=== PATIENT | female | born 1930 | race Caucasian/White ===

== ENCOUNTER 2016-12-21 16:16 | Inpatient (IN) | payer MEDICARE, MEDICAID ==
[~2016-12-21] VITALS: Ht 152.4 cm; Wt 59.9 kg
[~2016-12-21 16:16] MED LIST: ACET-2708 PO; CELE50CA2 PO; D-ME473S8 PO; ESOM40CA PO; LEVO50TA8 PO; PIOG30TA27 PO; REPA1TAB5 PO
[2016-12-21] MEDS ORDERED: METHYLPREDNISOLONE SOD SUCC 125 MG/2 ML VIAL IV STA (18:15)
[2016-12-21] MEDS ORDERED: IPRATROPIUM/ALBUTEROL 0.5-3(2.5)MG/3ML NEB HHN ONE (18:15)
[2016-12-21] MEDS ORDERED: SODIUM CHLORIDE 0.9% 500 ML IV ONE (18:15)
[2016-12-21] MEDS ORDERED: LEVOFLOXACIN 750MG PREMIX 150 ML IV ONE (18:15)
[2016-12-21 18:53] LABS: BG BASE EXCESS 0.5 mmol/L (-2.0-2.0); BG CARBOXYHEMOGLOBIN 0.1 % (0.5-1.5); BG DEOXYHEMOGLOBIN 2.3 % (0.0-5.0); BG FRACTION INSPIRED OXYGEN 24; BG HCO3 ACT 24.8 mmol/L (22.0-26.0); BG METHEMOGLOBIN 0.2 % (0.0-1.5); BG OXYGEN SATURATION 97.7 % (92.0-98.5); BG OXYHEMOGLOBIN 97.4 % (94.0-97.0); BG PCO2 38.7 mmHg (35.0-45.0); BG PH 7.425 (7.350-7.450); BG PO2 104.4 mmHg (75.0-100.0); BG SAMPLE SITE RIGHT RADIAL; BG TOTAL HEMOGLOBIN 12.5 g/dL (12.0-18.0); BG VENT MODE NASAL CANNULA
[2016-12-21 19:12] LABS: BASOPHILS % 0.5 % (0.0-2.0); EOSINOPHILS % 5.6 % (0.0-5.0); HEMATOCRIT. 38.1 % (36.0-48.0); HEMOGLOBIN. 13.1 g/dL (12.0-16.0); LYMPHOCYTES % 27.7 % (20.0-50.0); MEAN CORPUSCULAR HEMOGLOBIN 32.3 pg (28.0-32.0); MEAN CORPUSCULAR VOLUME 94.2 fL (81.0-99.0); MONOCYTES % 13.4 % (2.0-8.0); NEUTROPHILS % 52.8 % (40.0-76.0); RED BLOOD CELL COUNT 4.04 mill/uL (4.2-5.4); RED CELL DISTRIBUTION WIDTH 13.4 % (11.6-14.6)
[2016-12-21 19:22] LABS: CARBON DIOXIDE 29 mEq/L (21-32); CHLORIDE 97 mEq/L (98-107); CREATINE KINASE 93 IU/L (26-192); TROPONIN I < 0.02 ng/mL (0.00-0.04)
[2016-12-21 19:23] LABS: PARTIAL THROMBOPLASTIN TIME 24.3 sec (23.4-31.0); PROTHROMBIN TIME 10.6 sec (9.4-11.6)
[2016-12-21 19:26] LABS: MEAN PLATELET VOLUME 12.1 fl (7.4-10.4); PLATELET 162 x1000/uL (130-400)
[2016-12-21 20:20] LABS: CLARITY URINE CLEAR (CLEAR); COLOR URINE YELLOW (YELLOW); GLUCOSE URINE NEGATIVE (NEGATIVE); KETONES URINE NEGATIVE (NEGATIVE); LEUKOCYTE ESTERASE URINE NEGATIVE (NEGATIVE); NITRITE URINE NEGATIVE (NEGATIVE); OCCULT BLOOD URINE NEGATIVE (NEGATIVE); PH URINE 7.5 (4.5-8.0); PROTEIN URINE NEGATIVE (NEGATIVE); SPECIFIC GRAVITY URINE 1.008 (1.005-1.030); UROBILINOGEN URINE 0.2 E.U./dL (0.2-1.0)
[2016-12-21] MEDS ORDERED: DOCUSATE SODIUM 100MG CAPSULE PO PRN (20:45)
[2016-12-21] MEDS ORDERED: DIPHENHYDRAMINE 50MG/ML VIAL IV PRN (20:45)
[2016-12-21] MEDS ORDERED: ONDANSETRON HCL 4MG/2ML VIAL IV PRN (20:45)
[2016-12-21] MEDS ORDERED: MORPHINE SULFATE 4 MG/ML CPJ (NOT FOR IM USE) IV PRN (20:45)
[2016-12-21] MEDS ORDERED: CLONIDINE 0.1MG TABLET PO PRN (20:45)
[2016-12-21] MEDS ORDERED: NA PHOS,M-B/NA PHOS,DI-BA ENEMA 118ML PR PRN (20:45)
[2016-12-21] MEDS ORDERED: ZOLPIDEM TARTRATE 5MG TABLET PO PRN (20:45)
[2016-12-21] MEDS ORDERED: TRAMADOL 50MG TABLET PO PRN (20:45)
[2016-12-21] MEDS ORDERED: GUAIFENESIN 200MG/10ML SUGAR FREE UDC PO PRN (20:45)
[2016-12-21] MEDS ORDERED: NITROGLYCERIN 0.4MG TABLET SL SL PRN (20:45)
[2016-12-21] MEDS ORDERED: IPRATROPIUM/ALBUTEROL 0.5-3(2.5)MG/3ML NEB INH PRN (20:45)
[2016-12-21] MEDS ORDERED: LEVOFLOXACIN 500MG PREMIX 100 ML IV SCH (20:45)
[2016-12-21] MEDS ORDERED: MAGNESIUM/ALUMINUM HYDROXIDE/SIMETHICONE 30ML UDC PO PRN (20:45)
[2016-12-21] MEDS ORDERED: DEXTROSE 50% WATER 50ML SYRINGE IV PRN (23:30)
[2016-12-22] VITALS: BP_SYST 167; BP_SYST 169; BP_DIAS 79; BP_DIAS 97
[2016-12-22 02:46] LABS: CREATINE KINASE 78 IU/L (26-192); CREATINE KINASE MB FRACTION 1.5 ng/mL (0.5-3.6); TROPONIN I < 0.02 ng/mL (0.00-0.04)
[2016-12-22 04:00] VITALS: BP 134/54
[2016-12-22] MEDS: IPRATROPIUM/ALBUTEROL 0.5-3(2.5)MG/3ML NEB HHN SCH ×5 (04:07→20:31)
[2016-12-22] MEDS ORDERED: LEVOTHYROXINE SODIUM 50MCG TABLET PO SCH (07:40)
[2016-12-22 08:00] VITALS: BP 134/58
[2016-12-22] MEDS: BLOOD SUGAR DIAGNOSTIC STRIP TEST SCH ×4 (08:02→21:12)
[2016-12-22] MEDS: INSULIN LISPRO 100 UNITS/ML SUBCUT SCH ×4 (08:17→21:12)
[2016-12-22] MEDS: SUCRALFATE 1 G/10 ML UDC PO SCH ×4 (08:22→21:11)
[2016-12-22] MEDS: ASPIRIN 325MG EC TABLET PO SCH (08:23)
[2016-12-22] MEDS: FAMOTIDINE 20MG/2ML VIAL IV SCH (08:23)
[2016-12-22] MEDS: GUAIFENESIN/DM 600MG/30MG ER TAB 12HR PO SCH ×2 (08:23→21:11)
[2016-12-22] MEDS: ZINC SULFATE 220 MG ( 50 ) CAPSULE PO SCH (08:23)
[2016-12-22] MEDS: ENOXAPARIN 40MG/0.4ML SYR SUBCUT SCH (08:23)
[2016-12-22] MEDS: ACETAMINOPHEN 325MG TABLET PO PRN (08:29)
[2016-12-22 10:16] LABS: BASOPHILS % 0.3 % (0.0-2.0); HEMATOCRIT. 38.3 % (36.0-48.0); LYMPHOCYTES % 10.3 % (20.0-50.0); MEAN CORPUSCULAR HEMOGLOBIN 32.2 pg (28.0-32.0); MEAN PLATELET VOLUME 12.1 fl (7.4-10.4); MONOCYTES % 0.8 % (2.0-8.0); NEUTROPHILS % 88.6 % (40.0-76.0); PLATELET 159 x1000/uL (130-400); RED BLOOD CELL COUNT 4.03 mill/uL (4.2-5.4); RED CELL DISTRIBUTION WIDTH 13.5 % (11.6-14.6)
[2016-12-22 10:36] LABS: CARBON DIOXIDE 23 mEq/L (21-32); CHLORIDE 98 mEq/L (98-107); CREATINE KINASE 76 IU/L (26-192); CREATINE KINASE MB FRACTION 1.5 ng/mL (0.5-3.6); TROPONIN I < 0.02 ng/mL (0.00-0.04)
[2016-12-22 12:00] VITALS: BP 137/64
[2016-12-22] MEDS: AZITHROMYCIN 500 MG in DEXT 5% WATER 250 ML IV SCH (12:11)
[2016-12-22] MEDS ORDERED: IPRATROPIUM/ALBUTEROL 0.5-3(2.5)MG/3ML NEB HHN PRN (13:30)
[2016-12-22 14:19] LABS: PLATELET ESTIMATE NORMAL
[2016-12-22] MEDS: METHYLPREDNISOLONE SOD SUCC 125 MG/2 ML VIAL IV SCH ×2 (14:34→21:11)
[2016-12-22 16:00] VITALS: BP 107/62
[2016-12-22] MEDS ORDERED: LEVOFLOXACIN 250MG PREMIX 50 ML IV SCH (20:00)
[2016-12-22] MEDS: BUDESONIDE 0.5MG/2ML NEB HHN SCH (20:31)
[2016-12-23] MEDS: IPRATROPIUM/ALBUTEROL 0.5-3(2.5)MG/3ML NEB HHN SCH ×6 (00:12→20:32)
[2016-12-23] MEDS: BLOOD SUGAR DIAGNOSTIC STRIP TEST SCH ×4 (05:53→21:09)
[2016-12-23] MEDS: METHYLPREDNISOLONE SOD SUCC 125 MG/2 ML VIAL IV SCH ×2 (06:02→14:14)
[2016-12-23] MEDS: INSULIN LISPRO 100 UNITS/ML SUBCUT SCH ×4 (06:03→21:10)
[2016-12-23 08:00] VITALS: BP 122/54
[2016-12-23] MEDS: BUDESONIDE 0.5MG/2ML NEB HHN SCH ×2 (08:21→20:32)
[2016-12-23] MEDS: ACETAMINOPHEN 325MG TABLET PO PRN (09:03)
[2016-12-23] MEDS: SUCRALFATE 1 G/10 ML UDC PO SCH ×4 (09:03→21:09)
[2016-12-23] MEDS: ZINC SULFATE 220 MG ( 50 ) CAPSULE PO SCH (09:03)
[2016-12-23] MEDS: ENOXAPARIN 40MG/0.4ML SYR SUBCUT SCH (09:03)
[2016-12-23] MEDS: ASPIRIN 325MG EC TABLET PO SCH (09:03)
[2016-12-23] MEDS: LEVOTHYROXINE SODIUM 50MCG TABLET PO SCH (09:03)
[2016-12-23] MEDS: FAMOTIDINE 20MG/2ML VIAL IV SCH (09:04)
[2016-12-23] MEDS: AZITHROMYCIN 500 MG in DEXT 5% WATER 250 ML IV SCH (09:04)
[2016-12-23] MEDS: GUAIFENESIN/DM 600MG/30MG ER TAB 12HR PO SCH ×2 (09:18→21:09)
[2016-12-23 12:00] VITALS: BP 124/54
[2016-12-23 16:00] VITALS: BP 133/60
[2016-12-23] MEDS: INSULIN DETEMIR UD 100 UNITS/ML SYR SUBCUT SCH (16:19)
[2016-12-23 20:05] VITALS: BP 109/47
[2016-12-23] MEDS: METHYLPREDNISOLONE SOD SUCC 40 MG/ML VIAL IV SCH (21:09)
[2016-12-24 00:05] VITALS: BP 115/53
[2016-12-24] MEDS: IPRATROPIUM/ALBUTEROL 0.5-3(2.5)MG/3ML NEB HHN SCH ×4 (00:27→12:14)
[2016-12-24 04:02] VITALS: BP 122/52
[2016-12-24 08:00] VITALS: BP 176/65
[2016-12-24] MEDS: ASPIRIN 325MG EC TABLET PO SCH (08:29)
[2016-12-24] MEDS: LEVOTHYROXINE SODIUM 50MCG TABLET PO SCH (08:29)
[2016-12-24] MEDS: ZINC SULFATE 220 MG ( 50 ) CAPSULE PO SCH (08:29)
[2016-12-24] MEDS: GUAIFENESIN/DM 600MG/30MG ER TAB 12HR PO SCH (08:29)
[2016-12-24] MEDS: METHYLPREDNISOLONE SOD SUCC 40 MG/ML VIAL IV SCH (08:30)
[2016-12-24] MEDS: ENOXAPARIN 40MG/0.4ML SYR SUBCUT SCH (08:30)
[2016-12-24] MEDS: FAMOTIDINE 20MG/2ML VIAL IV SCH (08:30)
[2016-12-24] MEDS: SUCRALFATE 1 G/10 ML UDC PO SCH ×3 (08:30→17:40)
[2016-12-24] MEDS: BLOOD SUGAR DIAGNOSTIC STRIP TEST SCH ×3 (08:30→18:25)
[2016-12-24] MEDS: INSULIN LISPRO 100 UNITS/ML SUBCUT SCH ×3 (08:37→18:27)
[2016-12-24] MEDS: AZITHROMYCIN 500 MG in DEXT 5% WATER 250 ML IV SCH (08:42)
[2016-12-24] MEDS: BUDESONIDE 0.5MG/2ML NEB HHN SCH (08:42)
[2016-12-24] MEDS: INSULIN DETEMIR UD 100 UNITS/ML SYR SUBCUT SCH (10:33)
[2016-12-24 11:15] VITALS: BP 140/87
[2016-12-24 12:00] VITALS: BP 130/70
[2016-12-25] MEDS ORDERED: AZITHROMYCIN 500 MG TABLET PO SCH (09:00)
== END 2016-12-24 19:40 | disposition home or self-care (01) | DRG 140 ==
LOC: EDBEDREQ 20:25 → SUPCPDRO 20:34 → ER 21:22 → 7WST 21:25 → ENRESERV 23:14
PROVIDERS: ADMIT Internal Medicine; ATTEND Internal Medicine
DX: J44.1 Chronic obstructive pulmonary disease with (acute) exacerbation (principal); J96.01 Acute respiratory failure with hypoxia; E87.0 Hyperosmolality and hypernatremia; J84.10 Pulmonary fibrosis, unspecified; E87.1 Hypo-osmolality and hyponatremia; M19.90 Unspecified osteoarthritis, unspecified site; E03.9 Hypothyroidism, unspecified; E11.65 Type 2 diabetes mellitus with hyperglycemia; T37.8X5A Adverse effect of other specified systemic anti-infectives and antiparasitics, initial encounter; Z79.4 Long term (current) use of insulin; Z87.442 Personal history of urinary calculi; Z90.81 Acquired absence of spleen; Z96.649 Presence of unspecified artificial hip joint; Z99.81 Dependence on supplemental oxygen; Z90.49 Acquired absence of other specified parts of digestive tract; Z88.8 Allergy status to other drugs, medicaments and biological substances
CPT/HCPCS: 36415; 36600; 71010; 80053; 80061; 81003; 82375; 82550; 82553; 82805; 82962; 83036; 83605; 83690; 83735; 83880; 84132; 84443; 84484; 85025; 85610; 85730; 87040; 93005; 93306; 94620; 94640; 96361; 96374; 96375; 99285; J0456; J1200; J1650; J1815; J1956; J2405; J2920; J2930; J3490; J7040; J7060; J7620; J7626

== ENCOUNTER → 2017-03-26 | Outpatient (CLI) | payer MEDICARE, MEDICAID | END | disposition home or self-care (01) | LOC: CT 09:42 | PROVIDERS: ATTEND Internal Medicine Critical Care Medicine | DX: J84.10 Pulmonary fibrosis, unspecified (principal); I70.0 Atherosclerosis of aorta; R59.0 Localized enlarged lymph nodes | CPT/HCPCS: 71250 ==

== ENCOUNTER 2018-03-29 20:21 | Inpatient (IN) | payer MEDICARE, MEDICAID ==
[~2018-03-29] VITALS: Ht 127 cm; Wt 59.0 kg
[~2018-03-29 20:21] MED LIST changes: +IPRA3AMP9 INH; +P20 PO; +PULM50 HHN
[2018-03-29] MEDS ORDERED: ALBUTEROL (0.083%) 2.5MG/3ML NEB HHN STA (23:27)
[2018-03-29] MEDS ORDERED: IPRATROPIUM BROMIDE (0.02%) 0.5MG/2.5ML NEB HHN STA (23:27)
[2018-03-29 23:51] LABS: CLARITY URINE CLEAR (CLEAR); COLOR URINE YELLOW (YELLOW); KETONES URINE NEGATIVE (NEGATIVE); LEUKOCYTE ESTERASE URINE TRACE (NEGATIVE); NITRITE URINE POSITIVE (NEGATIVE); OCCULT BLOOD URINE NEGATIVE (NEGATIVE); PH URINE 6.5 (4.5-8.0); PROTEIN URINE NEGATIVE (NEGATIVE); SPECIFIC GRAVITY URINE 1.007 (1.005-1.030); UROBILINOGEN URINE 0.2 E.U./dL (0.2-1.0)
[2018-03-30 00:28] LABS: BASOPHILS % 0.6 % (0.0-2.0); HEMATOCRIT. 37.7 % (36.0-48.0); HEMOGLOBIN. 12.9 g/dL (12.0-16.0); LYMPHOCYTES % 21.6 % (20.0-50.0); MEAN CORPUSCULAR HEMOGLOBIN 32.7 pg (28.0-32.0); MEAN CORPUSCULAR VOLUME 95.5 fL (81.0-99.0); MEAN PLATELET VOLUME 10.7 fl (7.4-10.4); MONOCYTES % 13.8 % (2.0-8.0); PLATELET 218 x1000/uL (130-400); RED BLOOD CELL COUNT 3.95 mill/uL (4.2-5.4); RED CELL DISTRIBUTION WIDTH 13.2 % (11.6-14.6)
[2018-03-30 00:44] LABS: CHLORIDE 95 mEq/L (98-107)
[2018-03-30] MEDS ORDERED: GENTAMICIN SULFATE 120 MG in SODIUM CHLORIDE 0.9% 100 ML IV SCH (01:45)
[2018-03-30] MEDS ORDERED: METHYLPREDNISOLONE SOD SUCC 125 MG/2 ML VIAL IV ONE (01:45)
[2018-03-30] MEDS ORDERED: AZITHROMYCIN 500 MG in DEXT 5% WATER 250 ML IV SCH (01:45)
[2018-03-30] MEDS: GENTAMICIN SULFATE 120 MG in SODIUM CHLORIDE 0.9% 100 ML IV NR ×2 (03:02→04:59)
[2018-03-30 04:00] VITALS: BP 121/67
[2018-03-30] MEDS ORDERED: IPRATROPIUM/ALBUTEROL 0.5-3(2.5)MG/3ML NEB INH PRN (06:00)
[2018-03-30] MEDS ORDERED: ONDANSETRON HCL 4MG/2ML INJ IV PRN (06:00)
[2018-03-30] MEDS ORDERED: NA PHOS,M-B/NA PHOS,DI-BA ENEMA 118ML PR PRN (06:00)
[2018-03-30] MEDS ORDERED: LORAZEPAM 2MG/ML CPJ IV PRN (06:00)
[2018-03-30] MEDS ORDERED: CLONIDINE 0.1MG TABLET PO PRN (06:00)
[2018-03-30] MEDS ORDERED: DEXTROSE 50% WATER 50ML SYRINGE IV PRN (06:00)
[2018-03-30] MEDS ORDERED: HYDROCODONE/ACETAMINOPHEN 5/325MG TABLET PO PRN (06:00)
[2018-03-30] MEDS ORDERED: MAGNESIUM/ALUMINUM HYDROXIDE/SIMETHICONE 30ML UDC PO PRN (06:00)
[2018-03-30] MEDS ORDERED: ACETAMINOPHEN 325MG TABLET PO PRN (06:00)
[2018-03-30] MEDS ORDERED: MORPHINE SULFATE 2 MG/ML CPJ (NOT FOR IM USE) IV PRN (06:00)
[2018-03-30 06:24] VITALS: BP 120/55
[2018-03-30] MEDS: SODIUM CHLORIDE 0.9% INJ 3ML FLUSH IVF SCH ×3 (06:46→20:41)
[2018-03-30] MEDS: BLOOD SUGAR DIAGNOSTIC STRIP TEST SCH ×5 (06:57→20:41)
[2018-03-30 08:00] VITALS: BP 132/65
[2018-03-30] MEDS: ENOXAPARIN 40MG/0.4ML SYR SUBCUT SCH (08:47)
[2018-03-30] MEDS: GUAIFENESIN 200MG/10ML SUGAR FREE UDC PO PRN (08:47)
[2018-03-30] MEDS: INSULIN LISPRO 100 UNITS/ML SUBCUT SCH ×5 (08:47→20:43)
[2018-03-30] MEDS ORDERED: INFLUENZA VIRUS VACCINE(AFLURIA) 0.5ML SYR IM ONE (10:00)
[2018-03-30] MEDS ORDERED: HYDROMORPHONE HCL/PF 2MG/ML CPJ IV PRN (10:00)
[2018-03-30 10:01] LABS: CREATINE KINASE 48 IU/L (26-192)
[2018-03-30 10:02] LABS: CREATINE KINASE MB FRACTION 1.4 ng/mL (0.5-3.6)
[2018-03-30 12:00] VITALS: BP 124/53
[2018-03-30 16:00] VITALS: BP 132/58
[2018-03-30] MEDS ORDERED: IPRATROPIUM/ALBUTEROL 0.5-3(2.5)MG/3ML NEB HHN PRN (18:15)
[2018-03-30 20:00] VITALS: BP 127/60
[2018-03-30] MEDS: BUDESONIDE 0.5MG/2ML NEB HHN SCH (20:38)
[2018-03-30] MEDS: IPRATROPIUM/ALBUTEROL 0.5-3(2.5)MG/3ML NEB HHN SCH (20:38)
[2018-03-31 00:05] VITALS: BP 129/58
[2018-03-31 01:17] LABS: CREATINE KINASE 55 IU/L (26-192)
[2018-03-31 01:18] LABS: CREATINE KINASE MB FRACTION 1.3 ng/mL (0.5-3.6)
[2018-03-31 04:00] VITALS: BP 98/80
[2018-03-31] MEDS: AZITHROMYCIN 500 MG in DEXT 5% WATER 250 ML IV SCH (05:49)
[2018-03-31] MEDS: SODIUM CHLORIDE 0.9% INJ 3ML FLUSH IVF SCH ×3 (05:50→22:00)
[2018-03-31 06:34] LABS: BASOPHILS % 0.3 % (0.0-2.0); EOSINOPHILS % 0.4 % (0.0-5.0); HEMATOCRIT. 33.9 % (36.0-48.0); HEMOGLOBIN. 11.7 g/dL (12.0-16.0); LYMPHOCYTES % 15.8 % (20.0-50.0); MEAN CORPUSCULAR HEMOGLOBIN 32.7 pg (28.0-32.0); MEAN CORPUSCULAR VOLUME 95.1 fL (81.0-99.0); MEAN PLATELET VOLUME 10.6 fl (7.4-10.4); MONOCYTES % 14.6 % (2.0-8.0); NEUTROPHILS % 68.9 % (40.0-76.0); PLATELET 205 x1000/uL (130-400); RED BLOOD CELL COUNT 3.56 mill/uL (4.2-5.4); RED CELL DISTRIBUTION WIDTH 13.2 % (11.6-14.6)
[2018-03-31 06:54] LABS: CHLORIDE 94 mEq/L (98-107)
[2018-03-31 07:26] LABS: T4 FREE 1.14 ng/dL (0.76-1.46)
[2018-03-31 08:00] VITALS: BP 109/37
[2018-03-31] MEDS: BLOOD SUGAR DIAGNOSTIC STRIP TEST SCH ×4 (08:37→20:51)
[2018-03-31] MEDS: ENOXAPARIN 40MG/0.4ML SYR SUBCUT SCH (08:48)
[2018-03-31] MEDS: INSULIN LISPRO 100 UNITS/ML SUBCUT SCH ×4 (08:52→21:32)
[2018-03-31] MEDS: IPRATROPIUM/ALBUTEROL 0.5-3(2.5)MG/3ML NEB HHN SCH ×3 (09:33→21:08)
[2018-03-31] MEDS: BUDESONIDE 0.5MG/2ML NEB HHN SCH ×2 (09:33→21:08)
[2018-03-31] MEDS ORDERED: FUROSEMIDE 40MG/4ML VIAL IVP SCH (11:00)
[2018-03-31 12:00] VITALS: BP 100/31
[2018-03-31] MEDS: DOCUSATE SODIUM 100MG CAPSULE PO PRN (13:22)
[2018-03-31] MEDS: NITROFURANTOIN 100MG M/M CAPSULE PO SCH ×2 (13:23→20:50)
[2018-03-31 16:00] VITALS: BP 122/54
[2018-03-31 20:00] VITALS: BP 128/52
[2018-04-01] VITALS: BP 126/64
[2018-04-01] MEDS: IPRATROPIUM/ALBUTEROL 0.5-3(2.5)MG/3ML NEB HHN SCH ×4 (01:01→20:49)
[2018-04-01 04:00] VITALS: BP 109/41
[2018-04-01] MEDS: AZITHROMYCIN 500 MG in DEXT 5% WATER 250 ML IV SCH (05:25)
[2018-04-01] MEDS: SODIUM CHLORIDE 0.9% INJ 3ML FLUSH IVF SCH ×3 (05:26→22:45)
[2018-04-01] MEDS: BLOOD SUGAR DIAGNOSTIC STRIP TEST SCH ×4 (05:59→21:43)
[2018-04-01 06:53] LABS: BASOPHILS % 0.6 % (0.0-2.0); EOSINOPHILS % 7.4 % (0.0-5.0); HEMOGLOBIN. 12.3 g/dL (12.0-16.0); LYMPHOCYTES % 16.7 % (20.0-50.0); MEAN CORPUSCULAR HEMOGLOBIN 33.4 pg (28.0-32.0); MEAN CORPUSCULAR VOLUME 95.3 fL (81.0-99.0); MEAN PLATELET VOLUME 10.5 fl (7.4-10.4); MONOCYTES % 10.2 % (2.0-8.0); NEUTROPHILS % 65.1 % (40.0-76.0); PLATELET 197 x1000/uL (130-400); RED BLOOD CELL COUNT 3.67 mill/uL (4.2-5.4); RED CELL DISTRIBUTION WIDTH 13.4 % (11.6-14.6)
[2018-04-01 07:05] LABS: CHLORIDE 92 mEq/L (98-107)
[2018-04-01 07:25] LABS: LDL CHOLESTEROL 108 mg/dL (5-100)
[2018-04-01 07:26] LABS: CREATINE KINASE 33 IU/L (26-192)
[2018-04-01 07:27] LABS: HDL CHOLESTEROL 61 mg/dL (40-59)
[2018-04-01] MEDS: BUDESONIDE 0.5MG/2ML NEB HHN SCH ×2 (07:30→20:46)
[2018-04-01 07:33] LABS: CREATINE KINASE MB FRACTION < 1.0 ng/mL (0.5-3.6)
[2018-04-01 08:00] VITALS: BP_SYST 110; BP_SYST 138; BP_DIAS 39; BP_DIAS 63
[2018-04-01] MEDS: INSULIN LISPRO 100 UNITS/ML SUBCUT SCH ×5 (08:10→21:51)
[2018-04-01] MEDS: BENZONATATE 100MG CAPSULE PO PRN ×2 (08:52→17:21)
[2018-04-01] MEDS: NITROFURANTOIN 100MG M/M CAPSULE PO SCH ×2 (08:52→21:43)
[2018-04-01] MEDS: GUAIFENESIN 200MG/10ML SUGAR FREE UDC PO PRN ×2 (08:53→17:21)
[2018-04-01] MEDS: DOCUSATE SODIUM 100MG CAPSULE PO PRN ×2 (08:53→17:21)
[2018-04-01] MEDS: ENOXAPARIN 40MG/0.4ML SYR SUBCUT SCH (08:53)
[2018-04-01 12:00] VITALS: BP 122/56
[2018-04-01 16:00] VITALS: BP 97/53
[2018-04-01 20:00] VITALS: BP 101/45
[2018-04-02] VITALS: BP 106/47
[2018-04-02] MEDS: IPRATROPIUM/ALBUTEROL 0.5-3(2.5)MG/3ML NEB HHN SCH ×3 (02:05→15:14)
[2018-04-02 04:00] VITALS: BP 104/47
[2018-04-02] MEDS: AZITHROMYCIN 500 MG in DEXT 5% WATER 250 ML IV SCH (06:09)
[2018-04-02] MEDS: BLOOD SUGAR DIAGNOSTIC STRIP TEST SCH ×2 (06:09→12:06)
[2018-04-02] MEDS: SODIUM CHLORIDE 0.9% INJ 3ML FLUSH IVF SCH (06:10)
[2018-04-02] MEDS: INSULIN LISPRO 100 UNITS/ML SUBCUT SCH ×2 (06:25→12:09)
[2018-04-02 08:00] VITALS: BP 132/58
[2018-04-02 08:58] LABS: BASOPHILS % 0.3 % (0.0-2.0); EOSINOPHILS % 8.1 % (0.0-5.0); HEMATOCRIT. 36.9 % (36.0-48.0); HEMOGLOBIN. 12.7 g/dL (12.0-16.0); LYMPHOCYTES % 12.2 % (20.0-50.0); MEAN CORPUSCULAR VOLUME 95.6 fL (81.0-99.0); MEAN PLATELET VOLUME 10.5 fl (7.4-10.4); MONOCYTES % 14.6 % (2.0-8.0); NEUTROPHILS % 64.8 % (40.0-76.0); PLATELET 194 x1000/uL (130-400); RED BLOOD CELL COUNT 3.86 mill/uL (4.2-5.4); RED CELL DISTRIBUTION WIDTH 13.3 % (11.6-14.6)
[2018-04-02] MEDS: ENOXAPARIN 40MG/0.4ML SYR SUBCUT SCH (09:01)
[2018-04-02] MEDS: NITROFURANTOIN 100MG M/M CAPSULE PO SCH (09:01)
[2018-04-02] MEDS: BUDESONIDE 0.5MG/2ML NEB HHN SCH (09:11)
[2018-04-02 12:00] VITALS: BP 146/65
[2018-04-02 12:37] LABS: CHLORIDE 97 mEq/L (98-107)
[2018-04-02 14:23] VITALS: BP 146/65
[2018-04-03] MEDS ORDERED: AZITHROMYCIN 500 MG TABLET PO SCH (06:00)
== END 2018-04-02 16:45 | disposition home or self-care (01) | DRG 720 ==
LOC: ER 20:21 → 5WST 03-30 01:50 → EDBEDREQ 03-30 02:17 → ENRESERV 03-30 03:06 → 7WST 03-30 17:00 → 5WST 04-02 05:56
PROVIDERS: ADMIT Internal Medicine; ATTEND Internal Medicine
DX: A41.9 Sepsis, unspecified organism (principal); J96.01 Acute respiratory failure with hypoxia; J18.9 Pneumonia, unspecified organism; E46 Unspecified protein-calorie malnutrition; J84.112 Idiopathic pulmonary fibrosis; J44.0 Chronic obstructive pulmonary disease with (acute) lower respiratory infection; E11.9 Type 2 diabetes mellitus without complications; N39.0 Urinary tract infection, site not specified; M25.511 Pain in right shoulder; I11.9 Hypertensive heart disease without heart failure; E87.1 Hypo-osmolality and hyponatremia; E78.5 Hyperlipidemia, unspecified; E03.9 Hypothyroidism, unspecified; E78.00 Pure hypercholesterolemia, unspecified; K21.9 Gastro-esophageal reflux disease without esophagitis; Z79.84 Long term (current) use of oral hypoglycemic drugs; Z79.890 Hormone replacement therapy; Z68.36 Body mass index [BMI] 36.0-36.9, adult; Z88.1 Allergy status to other antibiotic agents; Z79.899 Other long term (current) drug therapy
CPT/HCPCS: 36415; 71045; 73030; 80048; 80061; 82550; 82553; 82962; 83605; 83735; 83880; 84439; 84443; 84484; 85379; 87077; 87186; 90686; 93005; 93306; 93970; 94640; 97162; 97535; 99285; J0456; J1580; J1650; J1815; J1940; J2930; J7050; J7060; J7611; J7620; J7626

== ENCOUNTER 2018-07-15 13:03 | Inpatient (IN) | payer MEDICARE, MEDICAID ==
[~2018-07-15] VITALS: Ht 152.4 cm; Wt 54.9 kg
[2018-07-15] VITALS (12 sets, daily range): BP systolic 119–179; BP diastolic 52–91
[2018-07-15 13:35] LABS: BG BASE EXCESS 2.6 mmol/L (-2.0-2.0); BG BILEVEL POS AIRWAY PRESSURE 15/5; BG CARBOXYHEMOGLOBIN 0.3 % (0.5-1.5); BG DEOXYHEMOGLOBIN 0.7 % (0.0-5.0); BG FRACTION INSPIRED OXYGEN 50; BG HCO3 ACT 26.8 mmol/L (22.0-26.0); BG METHEMOGLOBIN 0.3 % (0.0-1.5); BG OXYGEN SATURATION 99.3 % (92.0-98.5); BG OXYHEMOGLOBIN 98.7 % (94.0-97.0); BG PCO2 40.1 mmHg (35.0-45.0); BG PH 7.443 (7.350-7.450); BG PO2 209.8 mmHg (75.0-100.0); BG SAMPLE SITE RIGHT RADIAL; BG TOTAL HEMOGLOBIN 13.1 g/dL (12.0-18.0); BG VENT MODE MASK - BIPAP; BG VENT RATE 16 set
[2018-07-15 13:48] LABS: HEMATOCRIT. 36.7 % (36.0-48.0); HEMOGLOBIN. 12.6 g/dL (12.0-16.0); MEAN CORPUSCULAR HEMOGLOBIN 32.2 pg (28.0-32.0); MEAN CORPUSCULAR VOLUME 93.5 fL (81.0-99.0); MEAN PLATELET VOLUME 10.7 fl (7.4-10.4); PLATELET 176 x1000/uL (130-400); RED BLOOD CELL COUNT 3.92 mill/uL (4.2-5.4); RED CELL DISTRIBUTION WIDTH 13.2 % (11.6-14.6)
[2018-07-15 13:52] LABS: CHLORIDE 87 mEq/L (98-107); INR 1.1; PROTHROMBIN TIME 11.3 sec (9.6-11.0)
[2018-07-15] MEDS ORDERED: VANCOMYCIN 1 G PREMIX 200 ML IV SCH (14:15)
[2018-07-15] MEDS ORDERED: GENTAMICIN 100MG PREMIX 100 ML IV ONE (14:15)
[2018-07-15 14:17] LABS: PLATELET ESTIMATE NORMAL
[2018-07-15] MEDS ORDERED: GENTAMICIN 100MG PREMIX 50 ML IV ONE (14:30)
[2018-07-15] MEDS ORDERED: DOCUSATE SODIUM 100MG CAPSULE PO PRN (15:00)
[2018-07-15] MEDS ORDERED: IPRATROPIUM/ALBUTEROL 0.5-3(2.5)MG/3ML NEB INH PRN (15:00)
[2018-07-15] MEDS ORDERED: ONDANSETRON HCL 4MG/2ML INJ IV PRN (15:00)
[2018-07-15] MEDS ORDERED: MAGNESIUM/ALUMINUM HYDROXIDE/SIMETHICONE 30ML UDC PO PRN (15:00)
[2018-07-15] MEDS ORDERED: LORAZEPAM 0.5MG TABLET PO PRN (15:00)
[2018-07-15] MEDS ORDERED: ZOLPIDEM TARTRATE 5MG TABLET PO PRN (15:00)
[2018-07-15] MEDS ORDERED: NITROGLYCERIN 0.4MG TABLET SL SL PRN (15:00)
[2018-07-15] MEDS ORDERED: CLONIDINE 0.1MG TABLET PO PRN (15:00)
[2018-07-15] MEDS ORDERED: GUAIFENESIN/DM 600MG/30MG ER TAB 12HR PO SCH (15:00)
[2018-07-15 16:13] LABS: T4 FREE 1.55 ng/dL (0.76-1.46)
[2018-07-15] MEDS ORDERED: METRONIDAZOLE 500 MG PREMIX 100 ML IV SCH (16:45)
[2018-07-15] MEDS ORDERED: AZTREONAM 1 G in DEXTROSE 5% WATER 50 ML IV SCH (16:45)
[2018-07-15] MEDS ORDERED: PROPOFOL 10MG/ML 100ML 100 ML IV PRN (16:45)
[2018-07-15] MEDS ORDERED: PROPOFOL 10MG/ML 100ML 100 ML IV ONE (17:15)
[2018-07-15] MEDS ORDERED: SUCCINYLCHOLINE CHLORIDE 200MG/10ML IV ONE (17:15)
[2018-07-15] MEDS ORDERED: ETOMIDATE 2MG/ML 10ML VIAL IV ONE (17:15)
[2018-07-15] MEDS ORDERED: ALBUTEROL (0.083%) 2.5MG/3ML NEB ONE (17:18)
[2018-07-15] MEDS ORDERED: MORPHINE SULFATE 4 MG/ML CPJ (NOT FOR IM USE) IV PRN (18:20)
[2018-07-15] MEDS ORDERED: TRAMADOL 50MG TABLET PO PRN (18:21)
[2018-07-15] MEDS ORDERED: NOREPINEPHRINE 16 MG in DEXT 5% WATER 234 ML IV PRN ×4 (18:30)
[2018-07-15] MEDS ORDERED: SODIUM CHLORIDE 0.9% 1,000 ML IV SCH (18:30)
[2018-07-15] MEDS ORDERED: DEXTROSE 50% WATER 50ML SYRINGE IV PRN (20:45)
[2018-07-15] MEDS: ENOXAPARIN 40MG/0.4ML SYR SUBCUT SCH (20:59)
[2018-07-15] MEDS ORDERED: NA PHOS,M-B/NA PHOS,DI-BA ENEMA 118ML PR PRN (21:00)
[2018-07-15] MEDS: BLOOD SUGAR DIAGNOSTIC STRIP TEST SCH (21:00)
[2018-07-15] MEDS: INSULIN LISPRO 100 UNITS/ML SUBCUT SCH (21:00)
[2018-07-15] MEDS: GUAIFENESIN/DM 600MG/30MG ER TAB 12HR PO SCH (21:00)
[2018-07-15] MEDS: ACETAMINOPHEN 325MG TABLET PO PRN (21:01)
[2018-07-15] MEDS ORDERED: GENTAMICIN 120MG PREMIX 100 ML IV SCH (21:30)
[2018-07-15] MEDS: METHYLPREDNISOLONE SOD SUCC 125 MG/2 ML VIAL IV SCH (21:50)
[2018-07-15] MEDS ORDERED: DEXT 5%/0.9% NACL KCL 20MEQ/L 1,000 ML IV SCH (22:00)
[2018-07-15 23:08] LABS: CREATINE KINASE 47 IU/L (26-192)
[2018-07-15 23:09] LABS: CREATINE KINASE MB FRACTION 1.1 ng/mL (0.5-3.6)
[2018-07-15 23:20] LABS: CLARITY URINE CLEAR (CLEAR); COLOR URINE YELLOW (YELLOW); KETONES URINE NEGATIVE (NEGATIVE); LEUKOCYTE ESTERASE URINE NEGATIVE (NEGATIVE); NITRITE URINE NEGATIVE (NEGATIVE); OCCULT BLOOD URINE NEGATIVE (NEGATIVE); PROTEIN URINE NEGATIVE (NEGATIVE); SPECIFIC GRAVITY URINE 1.004 (1.005-1.030)
[2018-07-16] VITALS (48 sets, daily range): BP systolic 98–147; BP diastolic 31–87
[2018-07-16] MEDS ORDERED: VANCOMYCIN 750 MG PREMIX 150 ML IV SCH (05:00)
[2018-07-16 05:50] LABS: CREATINE KINASE 49 IU/L (26-192)
[2018-07-16 05:51] LABS: CREATINE KINASE MB FRACTION 1.5 ng/mL (0.5-3.6)
[2018-07-16] MEDS: METHYLPREDNISOLONE SOD SUCC 125 MG/2 ML VIAL IV SCH ×3 (06:39→21:00)
[2018-07-16] MEDS ORDERED: LEVOTHYROXINE SODIUM 112MCG TABLET PO SCH (07:50)
[2018-07-16 07:57] LABS: BG BASE EXCESS 0.5 mmol/L (-2.0-2.0); BG CARBOXYHEMOGLOBIN 0.8 % (0.5-1.5); BG DEOXYHEMOGLOBIN 2.2 % (0.0-5.0); BG FRACTION INSPIRED OXYGEN 31; BG HCO3 ACT 27.2 mmol/L (22.0-26.0); BG METHEMOGLOBIN 0.3 % (0.0-1.5); BG OXYGEN SATURATION 97.8 % (92.0-98.5); BG OXYHEMOGLOBIN 96.7 % (94.0-97.0); BG PCO2 52.1 mmHg (35.0-45.0); BG PH 7.336 (7.350-7.450); BG PO2 108.1 mmHg (75.0-100.0); BG SAMPLE SITE RIGHT RADIAL; BG TOTAL HEMOGLOBIN 13.8 g/dL (12.0-18.0); BG VENT MODE MASK - VENTI
[2018-07-16] MEDS: BLOOD SUGAR DIAGNOSTIC STRIP TEST SCH ×4 (08:09→21:22)
[2018-07-16] MEDS: GUAIFENESIN/DM 600MG/30MG ER TAB 12HR PO SCH ×2 (08:18→21:00)
[2018-07-16] MEDS: INSULIN LISPRO 100 UNITS/ML SUBCUT SCH ×4 (08:19→21:25)
[2018-07-16 08:29] LABS: HEMATOCRIT. 38.9 % (36.0-48.0); HEMOGLOBIN. 13.3 g/dL (12.0-16.0); MEAN CORPUSCULAR HEMOGLOBIN 32.4 pg (28.0-32.0); MEAN CORPUSCULAR VOLUME 94.8 fL (81.0-99.0); MEAN PLATELET VOLUME 11.1 fl (7.4-10.4); PLATELET 192 x1000/uL (130-400); RED CELL DISTRIBUTION WIDTH 13.3 % (11.6-14.6)
[2018-07-16 08:30] LABS: CHLORIDE 93 mEq/L (98-107)
[2018-07-16 09:37] LABS: PLATELET ESTIMATE NORMAL
[2018-07-16] MEDS: GUAIFENESIN 200MG/10ML SUGAR FREE UDC PO PRN ×2 (10:22→18:02)
[2018-07-16 14:13] LABS: BG CARBOXYHEMOGLOBIN 0.5 % (0.5-1.5); BG DEOXYHEMOGLOBIN 1.1 % (0.0-5.0); BG FRACTION INSPIRED OXYGEN 32; BG HCO3 ACT 25.6 mmol/L (22.0-26.0); BG METHEMOGLOBIN 0.5 % (0.0-1.5); BG OXYGEN SATURATION 98.9 % (92.0-98.5); BG OXYHEMOGLOBIN 97.9 % (94.0-97.0); BG PCO2 50.1 mmHg (35.0-45.0); BG PH 7.326 (7.350-7.450); BG PO2 160.6 mmHg (75.0-100.0); BG SAMPLE SITE LEFT BRACHIAL; BG TOTAL HEMOGLOBIN 13.5 g/dL (12.0-18.0); BG VENT MODE NASAL CANNULA
[2018-07-16] MEDS: ENOXAPARIN 40MG/0.4ML SYR SUBCUT SCH (20:59)
[2018-07-16] MEDS: GENTAMICIN 100MG PREMIX 50 ML IV SCH (21:00)
[2018-07-17] VITALS (25 sets, daily range): BP systolic 101–155; BP diastolic 39–89
[2018-07-17] MEDS: VANCOMYCIN 750 MG PREMIX 150 ML IV SCH ×2 (00:28→20:52)
[2018-07-17] MEDS: METHYLPREDNISOLONE SOD SUCC 125 MG/2 ML VIAL IV SCH ×3 (05:09→22:09)
[2018-07-17 07:31] LABS: BG CARBOXYHEMOGLOBIN 0.1 % (0.5-1.5); BG DEOXYHEMOGLOBIN 10.3 % (0.0-5.0); BG FRACTION INSPIRED OXYGEN 21; BG HCO3 ACT 20.7 mmol/L (22.0-26.0); BG METHEMOGLOBIN 0.1 % (0.0-1.5); BG OXYGEN SATURATION 89.7 % (92.0-98.5); BG OXYHEMOGLOBIN 89.5 % (94.0-97.0); BG PCO2 36.4 mmHg (35.0-45.0); BG PH 7.372 (7.350-7.450); BG PO2 59.4 mmHg (75.0-100.0); BG SAMPLE SITE LEFT RADIAL; BG TOTAL HEMOGLOBIN 13.1 g/dL (12.0-18.0); BG VENT MODE ROOM AIR
[2018-07-17] MEDS: BLOOD SUGAR DIAGNOSTIC STRIP TEST SCH ×4 (08:08→20:49)
[2018-07-17] MEDS: INSULIN LISPRO 100 UNITS/ML SUBCUT SCH ×4 (08:26→20:51)
[2018-07-17] MEDS: LEVOTHYROXINE SODIUM 75MCG TABLET PO SCH (08:26)
[2018-07-17] MEDS: GUAIFENESIN/DM 600MG/30MG ER TAB 12HR PO SCH ×2 (08:26→20:48)
[2018-07-17] MEDS: GUAIFENESIN 200MG/10ML SUGAR FREE UDC PO PRN ×2 (08:46→17:38)
[2018-07-17] MEDS: ACETAMINOPHEN 325MG TABLET PO PRN (17:24)
[2018-07-17] MEDS: GENTAMICIN 100MG PREMIX 50 ML IV SCH (20:48)
[2018-07-17] MEDS: ENOXAPARIN 40MG/0.4ML SYR SUBCUT SCH (20:48)
[2018-07-18] VITALS (12 sets, daily range): BP systolic 116–146; BP diastolic 56–85
[2018-07-18] MEDS: METHYLPREDNISOLONE SOD SUCC 125 MG/2 ML VIAL IV SCH (05:58)
[2018-07-18] MEDS: LEVOTHYROXINE SODIUM 75MCG TABLET PO SCH (06:05)
[2018-07-18] MEDS: BLOOD SUGAR DIAGNOSTIC STRIP TEST SCH ×4 (06:15→21:01)
[2018-07-18] MEDS: INSULIN LISPRO 100 UNITS/ML SUBCUT SCH ×4 (06:16→21:20)
[2018-07-18] MEDS: GUAIFENESIN/DM 600MG/30MG ER TAB 12HR PO SCH ×2 (07:56→21:04)
[2018-07-18 08:24] LABS: CHLORIDE 90 mEq/L (98-107)
[2018-07-18] MEDS: VANCOMYCIN 750 MG PREMIX 150 ML IV SCH (15:05)
[2018-07-18] MEDS: PREDNISONE 20MG TABLET PO SCH (16:53)
[2018-07-18] MEDS: GENTAMICIN 100MG PREMIX 50 ML IV SCH (21:01)
[2018-07-18] MEDS: ENOXAPARIN 40MG/0.4ML SYR SUBCUT SCH (21:01)
[2018-07-18] MEDS: IPRATROPIUM/ALBUTEROL 0.5-3(2.5)MG/3ML NEB HHN SCH (21:14)
[2018-07-19] VITALS (13 sets, daily range): BP systolic 116–146; BP diastolic 48–81
[2018-07-19] MEDS: IPRATROPIUM/ALBUTEROL 0.5-3(2.5)MG/3ML NEB HHN SCH ×4 (01:50→21:13)
[2018-07-19] MEDS: VANCOMYCIN 750 MG PREMIX 150 ML IV SCH ×2 (04:58→20:21)
[2018-07-19] MEDS: LEVOTHYROXINE SODIUM 75MCG TABLET PO SCH (06:22)
[2018-07-19] MEDS: PREDNISONE 20MG TABLET PO SCH ×2 (06:22→16:50)
[2018-07-19] MEDS: BLOOD SUGAR DIAGNOSTIC STRIP TEST SCH ×4 (06:37→21:28)
[2018-07-19] MEDS: INSULIN LISPRO 100 UNITS/ML SUBCUT SCH ×4 (07:23→21:28)
[2018-07-19] MEDS: GUAIFENESIN/DM 600MG/30MG ER TAB 12HR PO SCH ×2 (07:50→21:27)
[2018-07-19 12:08] LABS: BG BASE EXCESS 5.8 mmol/L (-2.0-2.0); BG CARBOXYHEMOGLOBIN 0.1 % (0.5-1.5); BG DEOXYHEMOGLOBIN 14.9 % (0.0-5.0); BG HCO3 ACT 31.4 mmol/L (22.0-26.0); BG METHEMOGLOBIN 0.4 % (0.0-1.5); BG OXYHEMOGLOBIN 84.6 % (94.0-97.0); BG PCO2 49.6 mmHg (35.0-45.0); BG PH 7.419 (7.350-7.450); BG PO2 47.2 mmHg (75.0-100.0); BG SAMPLE SITE RIGHT RADIAL; BG TOTAL HEMOGLOBIN 13.1 g/dL (12.0-18.0); BG VENT MODE ROOM AIR
[2018-07-19] MEDS: ENOXAPARIN 40MG/0.4ML SYR SUBCUT SCH (20:22)
[2018-07-20] VITALS (10 sets, daily range): BP systolic 113–138; BP diastolic 49–75
[2018-07-20] MEDS: IPRATROPIUM/ALBUTEROL 0.5-3(2.5)MG/3ML NEB HHN SCH ×3 (03:17→14:01)
[2018-07-20] MEDS ORDERED: GENTAMICIN 100MG PREMIX 50 ML IV SCH (06:00)
[2018-07-20 06:28] LABS: CHLORIDE 89 mEq/L (98-107)
[2018-07-20 07:02] LABS: GENTAMICIN RANDOM < 0.2 ug/mL
[2018-07-20] MEDS: BLOOD SUGAR DIAGNOSTIC STRIP TEST SCH ×3 (07:24→17:17)
[2018-07-20] MEDS: LEVOTHYROXINE SODIUM 75MCG TABLET PO SCH (07:30)
[2018-07-20] MEDS: PREDNISONE 20MG TABLET PO SCH ×2 (07:30→17:23)
[2018-07-20] MEDS: INSULIN LISPRO 100 UNITS/ML SUBCUT SCH ×3 (07:32→17:23)
[2018-07-20] MEDS: VANCOMYCIN 750 MG PREMIX 150 ML IV SCH (07:35)
[2018-07-20] MEDS: GUAIFENESIN/DM 600MG/30MG ER TAB 12HR PO SCH (08:18)
== END 2018-07-20 18:30 | disposition home or self-care (01) | DRG 133 ==
LOC: ER 13:03 → CVICU 14:39 → EDBEDREQ 14:41 → ENRESERV 16:09 → 3WST 07-17 22:45
PROVIDERS: ADMIT Internal Medicine; ATTEND Internal Medicine
PROC: 5A09457 Assistance with Respiratory Ventilation, 24-96 Consecutive Hours, Continuous Positive Airway Pressure (ICD-10-PCS; principal; 2018-07-15)
DX: J96.20 Acute and chronic respiratory failure, unspecified whether with hypoxia or hypercapnia (principal); G92 Toxic encephalopathy; J18.9 Pneumonia, unspecified organism; E11.65 Type 2 diabetes mellitus with hyperglycemia; J84.112 Idiopathic pulmonary fibrosis; Z99.81 Dependence on supplemental oxygen; J44.0 Chronic obstructive pulmonary disease with (acute) lower respiratory infection; I11.9 Hypertensive heart disease without heart failure; E11.36 Type 2 diabetes mellitus with diabetic cataract; E78.00 Pure hypercholesterolemia, unspecified; E44.1 Mild protein-calorie malnutrition; E87.1 Hypo-osmolality and hyponatremia; E03.9 Hypothyroidism, unspecified; K21.9 Gastro-esophageal reflux disease without esophagitis; Z79.4 Long term (current) use of insulin; Z82.5 Family history of asthma and other chronic lower respiratory diseases; Z90.81 Acquired absence of spleen; Z88.1 Allergy status to other antibiotic agents; Z90.49 Acquired absence of other specified parts of digestive tract; Z68.23 Body mass index [BMI] 23.0-23.9, adult; Z88.6 Allergy status to analgesic agent
CPT/HCPCS: 36415; 36600; 71045; 71250; 80048; 80170; 80202; 82375; 82550; 82553; 82805; 82962; 83036; 83605; 83880; 84439; 84443; 84484; 87070; 93005; 93306; 93970; 94640; 94660; 96374; 96375; 97116; 97162; 97166; 97530; 97535; 99285; J1580; J1650; J1815; J2930; J3370; J7040; J7512; J7611; J7620

== ENCOUNTER 2018-09-19 18:13 | Inpatient (IN) | payer MEDICARE, MEDICAID ==
[~2018-09-19] VITALS: Ht 162.6 cm; Wt 49.0 kg
[2018-09-19] MEDS ORDERED: ONDANSETRON HCL 4MG/2ML INJ IV STA ×2 (18:33→19:23)
[2018-09-19] MEDS ORDERED: ALBUTEROL (0.083%) 2.5MG/3ML NEB HHN STA (18:33)
[2018-09-19] MEDS ORDERED: IPRATROPIUM BROMIDE (0.02%) 0.5MG/2.5ML NEB HHN STA (18:33)
[2018-09-19 18:56] LABS: BASOPHILS % 0.8 % (0.0-2.0); EOSINOPHILS % 6.3 % (0.0-5.0); HEMOGLOBIN. 13.2 g/dL (12.0-16.0); LYMPHOCYTES % 16.3 % (20.0-50.0); MEAN CORPUSCULAR HEMOGLOBIN 33.1 pg (28.0-32.0); MEAN CORPUSCULAR VOLUME 95.3 fL (81.0-99.0); MEAN PLATELET VOLUME 9.9 fl (7.4-10.4); MONOCYTES % 11.9 % (2.0-8.0); NEUTROPHILS % 64.7 % (40.0-76.0); PLATELET 212 x1000/uL (130-400); RED BLOOD CELL COUNT 3.98 mill/uL (4.2-5.4); RED CELL DISTRIBUTION WIDTH 13.9 % (11.6-14.6)
[2018-09-19 19:00] LABS: CHLORIDE 90 mEq/L (98-107)
[2018-09-19] MEDS ORDERED: AZTREONAM 1 G in DEXTROSE 5% WATER 50 ML IV SCH (19:30)
[2018-09-19] MEDS ORDERED: SODIUM CHLORIDE 0.9% 1000ML BAG (SEPSIS BOLUS) IV ONE (19:30)
[2018-09-19 19:49] LABS: CLARITY URINE CLEAR (CLEAR); COLOR URINE YELLOW (YELLOW); KETONES URINE NEGATIVE (NEGATIVE); LEUKOCYTE ESTERASE URINE NEGATIVE (NEGATIVE); NITRITE URINE NEGATIVE (NEGATIVE); OCCULT BLOOD URINE NEGATIVE (NEGATIVE); PH URINE 7.5 (4.5-8.0); PROTEIN URINE TRACE (NEGATIVE); SPECIFIC GRAVITY URINE 1.009 (1.005-1.030)
[2018-09-19 20:24] LABS: BG BASE EXCESS 5.1 mmol/L (-2.0-2.0); BG CARBOXYHEMOGLOBIN 0.7 % (0.5-1.5); BG DEOXYHEMOGLOBIN 2.5 % (0.0-5.0); BG FRACTION INSPIRED OXYGEN 28; BG HCO3 ACT 30.6 mmol/L (22.0-26.0); BG METHEMOGLOBIN 0.3 % (0.0-1.5); BG OXYGEN SATURATION 97.5 % (92.0-98.5); BG OXYHEMOGLOBIN 96.5 % (94.0-97.0); BG PCO2 48.3 mmHg (35.0-45.0); BG PH 7.419 (7.350-7.450); BG PO2 99.7 mmHg (75.0-100.0); BG SAMPLE SITE LEFT RADIAL; BG TOTAL HEMOGLOBIN 13.6 g/dL (12.0-18.0); BG VENT MODE NASAL CANNULA
[2018-09-20 04:00] VITALS: BP 130/66
[2018-09-20 04:30] VITALS: BP 136/66
[2018-09-20] MEDS ORDERED: ACETAMINOPHEN 325MG TABLET PO PRN (04:45)
[2018-09-20 08:00] VITALS: BP 110/70
[2018-09-20] MEDS ORDERED: BUDESONIDE 0.5MG/2ML NEB HHN SCH (09:00)
[2018-09-20] MEDS: PANTOPRAZOLE 40MG DR TABLET PO SCH (09:17)
[2018-09-20] MEDS: LEVOTHYROXINE SODIUM 50MCG TABLET PO SCH (09:17)
[2018-09-20] MEDS: ENOXAPARIN 30MG/0.3ML SYR SUBCUT SCH (10:06)
[2018-09-20] MEDS ORDERED: NON FORMULARY PATIENT HOME MED ORI SCH (11:00)
[2018-09-20] MEDS ORDERED: METHYLPREDNISOLONE SOD SUCC 40 MG/ML VIAL IV SCH (11:00)
[2018-09-20] MEDS ORDERED: LEVOFLOXACIN 500MG TABLET PO SCH (11:00)
[2018-09-20] MEDS ORDERED: DEXTROSE 50% WATER 50ML SYRINGE IV PRN (12:30)
[2018-09-20] MEDS: IPRATROPIUM/ALBUTEROL 0.5-3(2.5)MG/3ML NEB HHN SCH ×3 (12:40→21:15)
[2018-09-20] MEDS ORDERED: BLOOD SUGAR DIAGNOSTIC STRIP TEST SCH (13:00)
[2018-09-20] MEDS ORDERED: INSULIN LISPRO 100 UNITS/ML SUBCUT SCH (13:00)
[2018-09-20] MEDS ORDERED: FUROSEMIDE 40MG TABLET PO NR (13:15)
[2018-09-20 16:00] VITALS: BP 117/64
[2018-09-20] MEDS ORDERED: GUAIFENESIN-DM 200MG-20MG/10ML UDC PO PRN (16:30)
[2018-09-20] MEDS: PREDNISONE 20MG TABLET PO SCH (16:41)
[2018-09-20] MEDS: BLOOD SUGAR DIAGNOSTIC STRIP TEST SCH ×2 (17:08→20:21)
[2018-09-20] MEDS: INSULIN LISPRO 100 UNITS/ML SUBCUT SCH ×2 (17:13→20:27)
[2018-09-20 20:00] VITALS: BP 121/52
[2018-09-20] MEDS: GUAIFENESIN 600MG ER TABLET PO SCH (20:22)
[2018-09-20] MEDS: BUDESONIDE 0.5MG/2ML NEB HHN SCH (21:16)
[2018-09-21] VITALS: BP 139/69
[2018-09-21] MEDS: IPRATROPIUM/ALBUTEROL 0.5-3(2.5)MG/3ML NEB HHN SCH ×7 (00:44→23:56)
[2018-09-21 04:00] VITALS: BP 122/52
[2018-09-21] MEDS: BLOOD SUGAR DIAGNOSTIC STRIP TEST SCH ×4 (06:19→21:09)
[2018-09-21] MEDS: PANTOPRAZOLE 40MG DR TABLET PO SCH (06:23)
[2018-09-21] MEDS: INSULIN LISPRO 100 UNITS/ML SUBCUT SCH ×4 (06:23→21:25)
[2018-09-21] MEDS: LEVOTHYROXINE SODIUM 50MCG TABLET PO SCH (06:23)
[2018-09-21 07:06] LABS: BASOPHILS % 0.1 % (0.0-2.0); HEMATOCRIT. 35.8 % (36.0-48.0); HEMOGLOBIN. 12.3 g/dL (12.0-16.0); LYMPHOCYTES % 9.5 % (20.0-50.0); MEAN CORPUSCULAR HEMOGLOBIN 32.7 pg (28.0-32.0); MEAN CORPUSCULAR VOLUME 95.1 fL (81.0-99.0); MONOCYTES % 5.6 % (2.0-8.0); NEUTROPHILS % 84.8 % (40.0-76.0); PLATELET 209 x1000/uL (130-400); RED BLOOD CELL COUNT 3.76 mill/uL (4.2-5.4); RED CELL DISTRIBUTION WIDTH 13.5 % (11.6-14.6)
[2018-09-21 07:25] LABS: CHLORIDE 87 mEq/L (98-107)
[2018-09-21 08:00] VITALS: BP 123/54
[2018-09-21] MEDS: BUDESONIDE 0.5MG/2ML NEB HHN SCH ×3 (08:19→20:24)
[2018-09-21] MEDS: PREDNISONE 20MG TABLET PO SCH ×2 (08:26→18:03)
[2018-09-21] MEDS: ENOXAPARIN 30MG/0.3ML SYR SUBCUT SCH (08:26)
[2018-09-21] MEDS: GUAIFENESIN 600MG ER TABLET PO SCH ×2 (08:27→21:08)
[2018-09-21] MEDS: FUROSEMIDE 20MG TABLET PO SCH (08:27)
[2018-09-21 12:00] VITALS: BP 119/51
[2018-09-21] MEDS ORDERED: LACTULOSE 20G/30ML UDC PO SCH (14:15)
[2018-09-21 16:00] VITALS: BP 109/65
[2018-09-21] MEDS ORDERED: ONDANSETRON HCL 4MG/2ML INJ IV PRN (18:30)
[2018-09-21 20:00] VITALS: BP 108/54
[2018-09-21] MEDS: INSULIN GLARGINE UD 100 UNITS/ML SYR SUBCUT SCH (21:23)
[2018-09-22] VITALS: BP 118/53
[2018-09-22] MEDS: IPRATROPIUM/ALBUTEROL 0.5-3(2.5)MG/3ML NEB HHN SCH ×5 (03:20→21:39)
[2018-09-22 04:00] VITALS: BP 112/54
[2018-09-22 05:54] LABS: BASOPHILS % 0.2 % (0.0-2.0); HEMATOCRIT. 33.7 % (36.0-48.0); HEMOGLOBIN. 11.4 g/dL (12.0-16.0); LYMPHOCYTES % 7.7 % (20.0-50.0); MEAN CORPUSCULAR HEMOGLOBIN 32.4 pg (28.0-32.0); MEAN CORPUSCULAR VOLUME 95.4 fL (81.0-99.0); MONOCYTES % 5.7 % (2.0-8.0); NEUTROPHILS % 86.4 % (40.0-76.0); PLATELET 206 x1000/uL (130-400); RED BLOOD CELL COUNT 3.54 mill/uL (4.2-5.4); RED CELL DISTRIBUTION WIDTH 13.7 % (11.6-14.6)
[2018-09-22] MEDS: BLOOD SUGAR DIAGNOSTIC STRIP TEST SCH ×4 (06:17→20:54)
[2018-09-22 06:19] LABS: CHLORIDE 85 mEq/L (98-107)
[2018-09-22] MEDS: LEVOTHYROXINE SODIUM 50MCG TABLET PO SCH (06:22)
[2018-09-22 08:00] VITALS: BP 95/59
[2018-09-22] MEDS: ENOXAPARIN 30MG/0.3ML SYR SUBCUT SCH (08:17)
[2018-09-22] MEDS: INSULIN LISPRO 100 UNITS/ML SUBCUT SCH ×4 (08:17→21:41)
[2018-09-22] MEDS: GUAIFENESIN 600MG ER TABLET PO SCH (08:18)
[2018-09-22] MEDS: FAMOTIDINE 20MG TABLET PO SCH ×2 (08:18→17:03)
[2018-09-22] MEDS: FUROSEMIDE 20MG TABLET PO SCH (08:18)
[2018-09-22] MEDS: PREDNISONE 20MG TABLET PO SCH (08:18)
[2018-09-22] MEDS: BUDESONIDE 0.5MG/2ML NEB HHN SCH ×2 (08:31→21:36)
[2018-09-22] MEDS: INSULIN GLARGINE UD 100 UNITS/ML SYR SUBCUT SCH ×2 (10:34→21:36)
[2018-09-22 12:00] VITALS: BP 112/45
[2018-09-22 16:00] VITALS: BP_SYST 117; BP_SYST 128; BP_DIAS 50; BP_DIAS 53
[2018-09-22 20:00] VITALS: BP_SYST 122; BP_SYST 130; BP_DIAS 57; BP_DIAS 59
[2018-09-22] MEDS ORDERED: ALPR0.25 MT (20:10)
[2018-09-22] MEDS ORDERED: BENZ200C52 MT (20:10)
[2018-09-23] VITALS (9 sets, daily range): BP systolic 103–156; BP diastolic 42–87
[2018-09-23] MEDS: ACETYLCYSTEINE 100MG/ML 10% VIAL 4ML INH SCH ×3 (00:45→14:57)
[2018-09-23] MEDS: IPRATROPIUM/ALBUTEROL 0.5-3(2.5)MG/3ML NEB HHN SCH ×6 (00:49→20:31)
[2018-09-23 05:45] LABS: CHLORIDE 86 mEq/L (98-107)
[2018-09-23 06:24] LABS: BASOPHILS % 0.4 % (0.0-2.0); EOSINOPHILS % 0.4 % (0.0-5.0); HEMATOCRIT. 33.7 % (36.0-48.0); HEMOGLOBIN. 11.7 g/dL (12.0-16.0); LYMPHOCYTES % 18.6 % (20.0-50.0); MEAN CORPUSCULAR VOLUME 95.1 fL (81.0-99.0); MEAN PLATELET VOLUME 10.6 fl (7.4-10.4); MONOCYTES % 13.5 % (2.0-8.0); NEUTROPHILS % 67.1 % (40.0-76.0); PLATELET 219 x1000/uL (130-400); RED BLOOD CELL COUNT 3.54 mill/uL (4.2-5.4); RED CELL DISTRIBUTION WIDTH 13.5 % (11.6-14.6)
[2018-09-23] MEDS: BLOOD SUGAR DIAGNOSTIC STRIP TEST SCH ×4 (06:38→21:00)
[2018-09-23] MEDS: INSULIN LISPRO 100 UNITS/ML SUBCUT SCH ×4 (06:38→21:21)
[2018-09-23] MEDS: LEVOTHYROXINE SODIUM 50MCG TABLET PO SCH ×2 (07:10→07:59)
[2018-09-23] MEDS: BUDESONIDE 0.5MG/2ML NEB HHN SCH (07:23)
[2018-09-23] MEDS: PREDNISONE 20MG TABLET PO SCH (09:25)
[2018-09-23] MEDS: FAMOTIDINE 20MG TABLET PO SCH (09:25)
[2018-09-23] MEDS: ENOXAPARIN 30MG/0.3ML SYR SUBCUT SCH (09:26)
[2018-09-23] MEDS: INSULIN GLARGINE UD 100 UNITS/ML SYR SUBCUT SCH ×2 (09:57→23:58)
[2018-09-23 10:45] LABS: BG BASE EXCESS 10.3 mmol/L (-2.0-2.0); BG CARBOXYHEMOGLOBIN 0.1 % (0.5-1.5); BG DEOXYHEMOGLOBIN 1.1 % (0.0-5.0); BG FRACTION INSPIRED OXYGEN 36; BG HCO3 ACT 37.1 mmol/L (22.0-26.0); BG METHEMOGLOBIN 0.6 % (0.0-1.5); BG OXYGEN SATURATION 98.9 % (92.0-98.5); BG OXYHEMOGLOBIN 98.2 % (94.0-97.0); BG PCO2 60.2 mmHg (35.0-45.0); BG PH 7.408 (7.350-7.450); BG SAMPLE SITE LEFT RADIAL; BG TOTAL HEMOGLOBIN 12.6 g/dL (12.0-18.0); BG VENT MODE NASAL CANNULA
[2018-09-23] MEDS ORDERED: ALPRAZOLAM 0.25 MG TABLET PO SCH (14:30)
[2018-09-23] MEDS ORDERED: POTASSIUM CHLORIDE 20MEQ TABLET SR PO NR (17:15)
[2018-09-23] MEDS ORDERED: ALPRAZOLAM 0.25 MG TABLET PO PRN (22:00)
[2018-09-24] VITALS: BP 107/73
[2018-09-24] MEDS: ACETYLCYSTEINE 100MG/ML 10% VIAL 4ML INH SCH ×3 (00:29→16:06)
[2018-09-24] MEDS: IPRATROPIUM/ALBUTEROL 0.5-3(2.5)MG/3ML NEB HHN SCH ×5 (00:29→16:06)
[2018-09-24 04:00] VITALS: BP 107/50
[2018-09-24] MEDS: INSULIN LISPRO 100 UNITS/ML SUBCUT SCH ×2 (06:04→12:22)
[2018-09-24] MEDS: BLOOD SUGAR DIAGNOSTIC STRIP TEST SCH ×2 (06:04→12:18)
[2018-09-24 06:28] LABS: CHLORIDE 87 mEq/L (98-107)
[2018-09-24 06:32] LABS: HEMATOCRIT. 33.6 % (36.0-48.0); HEMOGLOBIN. 11.7 g/dL (12.0-16.0); MEAN CORPUSCULAR HEMOGLOBIN 33.1 pg (28.0-32.0); MEAN CORPUSCULAR VOLUME 95.3 fL (81.0-99.0); MEAN PLATELET VOLUME 10.3 fl (7.4-10.4); PLATELET 208 x1000/uL (130-400); RED BLOOD CELL COUNT 3.53 mill/uL (4.2-5.4); RED CELL DISTRIBUTION WIDTH 13.9 % (11.6-14.6)
[2018-09-24] MEDS: LEVOTHYROXINE SODIUM 50MCG TABLET PO SCH (07:58)
[2018-09-24] MEDS: PREDNISONE 20MG TABLET PO SCH (08:00)
[2018-09-24] MEDS: ENOXAPARIN 30MG/0.3ML SYR SUBCUT SCH (08:01)
[2018-09-24] MEDS ORDERED: FAMOTIDINE 20MG TABLET PO SCH (09:00)
[2018-09-24] MEDS: INSULIN GLARGINE UD 100 UNITS/ML SYR SUBCUT SCH (10:04)
[2018-09-24 12:00] VITALS: BP 128/69
[2018-09-24 13:44] LABS: PLATELET ESTIMATE NORMAL
[2018-09-24 16:00] VITALS: BP 141/78
== END 2018-09-24 17:00 | disposition home health service (06) | DRG 133 ==
LOC: ER 18:47 → 8WST 22:20 → EDBEDREQTM 22:22 → EDBEDREQ 22:22 → ENRESERV 09-20 01:40
PROVIDERS: ADMIT Internal Medicine; ATTEND Internal Medicine
DX: J96.20 Acute and chronic respiratory failure, unspecified whether with hypoxia or hypercapnia (principal); G93.40 Encephalopathy, unspecified; I50.33 Acute on chronic diastolic (congestive) heart failure; E87.8 Other disorders of electrolyte and fluid balance, not elsewhere classified; E87.1 Hypo-osmolality and hyponatremia; J84.112 Idiopathic pulmonary fibrosis; E87.6 Hypokalemia; K21.9 Gastro-esophageal reflux disease without esophagitis; E11.36 Type 2 diabetes mellitus with diabetic cataract; E03.9 Hypothyroidism, unspecified; E78.00 Pure hypercholesterolemia, unspecified; F41.9 Anxiety disorder, unspecified; I11.0 Hypertensive heart disease with heart failure; J44.9 Chronic obstructive pulmonary disease, unspecified; Z82.5 Family history of asthma and other chronic lower respiratory diseases; Z88.1 Allergy status to other antibiotic agents; Z90.81 Acquired absence of spleen; Z99.81 Dependence on supplemental oxygen; Z79.4 Long term (current) use of insulin; Z90.49 Acquired absence of other specified parts of digestive tract; Z88.0 Allergy status to penicillin; Z68.1 Body mass index [BMI] 19.9 or less, adult
CPT/HCPCS: 36415; 36600; 71045; 80048; 82375; 82805; 82962; 83605; 83880; 84484; 93005; 94640; 97162; 97530; 99285; J1650; J1815; J2405; J2920; J3490; J7030; J7060; J7512; J7608; J7620; J7626

== ENCOUNTER 2018-12-11 01:47 | Inpatient (IN) | payer MEDICARE, MEDICAID ==
[~2018-12-11] VITALS: Ht 154.9 cm; Wt 50.6 kg
[~2018-12-11 01:47] MED LIST changes: -ACET-2708 PO; +ALPR0.25 MT; +BENZ200C52 MT; -D-ME473S8 PO; -P20 PO
[2018-12-11 03:13] LABS: HEMATOCRIT. 36.8 % (36.0-48.0); HEMOGLOBIN. 12.8 g/dL (12.0-16.0); MEAN CORPUSCULAR HEMOGLOBIN 33.6 pg (28.0-32.0); MEAN CORPUSCULAR VOLUME 96.2 fL (81.0-99.0); MEAN PLATELET VOLUME 10.9 fl (7.4-10.4); PLATELET 163 x1000/uL (130-400); RED BLOOD CELL COUNT 3.83 mill/uL (4.2-5.4); RED CELL DISTRIBUTION WIDTH 12.9 % (11.6-14.6)
[2018-12-11] MEDS ORDERED: ASPIRIN 81MG TABLET PO ONE (03:15)
[2018-12-11 03:18] LABS: CHLORIDE 85 mEq/L (98-107)
[2018-12-11] MEDS ORDERED: ONDANSETRON HCL 4MG/2ML INJ IV ONE ×2 (03:30→04:15)
[2018-12-11] MEDS ORDERED: SODIUM CHLORIDE 0.9% 1000ML BAG (SEPSIS BOLUS) IV ONE (04:15)
[2018-12-11 04:30] LABS: PLATELET ESTIMATE NORMAL
[2018-12-11 05:35] LABS: CLARITY URINE CLOUDY (CLEAR); COLOR URINE YELLOW (YELLOW); KETONES URINE NEGATIVE (NEGATIVE); LEUKOCYTE ESTERASE URINE TRACE (NEGATIVE); NITRITE URINE POSITIVE (NEGATIVE); OCCULT BLOOD URINE NEGATIVE (NEGATIVE); PH URINE 7.5 (4.5-8.0); PROTEIN URINE NEGATIVE (NEGATIVE); SPECIFIC GRAVITY URINE 1.012 (1.005-1.030)
[2018-12-11] MEDS: BUDESONIDE 0.5MG/2ML NEB HHN SCH (08:10)
[2018-12-11 20:00] VITALS: BP 139/57
[2018-12-11] MEDS ORDERED: METHOCARBAMOL 500MG TABLET PO ONE (20:15)
[2018-12-11 22:00] VITALS: BP 147/65
[2018-12-12] VITALS: BP 147/65
[2018-12-12] MEDS ORDERED: ALPRAZOLAM 0.25 MG TABLET PO PRN (00:15)
[2018-12-12] MEDS ORDERED: ONDANSETRON HCL 4MG/2ML INJ IV PRN (00:15)
[2018-12-12] MEDS ORDERED: DEXTROSE 50% WATER 50ML SYRINGE IV PRN (00:15)
[2018-12-12] MEDS ORDERED: CLONIDINE 0.1MG TABLET PO PRN (00:15)
[2018-12-12 04:00] VITALS: BP 147/94
[2018-12-12] MEDS: LEVOTHYROXINE SODIUM 50MCG TABLET PO SCH (05:58)
[2018-12-12] MEDS: BLOOD SUGAR DIAGNOSTIC STRIP TEST SCH ×4 (06:02→20:58)
[2018-12-12 06:35] LABS: BASOPHILS % 0.7 % (0.0-2.0); EOSINOPHILS % 9.7 % (0.0-5.0); HEMATOCRIT. 33.8 % (36.0-48.0); HEMOGLOBIN. 11.9 g/dL (12.0-16.0); LYMPHOCYTES % 11.9 % (20.0-50.0); MEAN CORPUSCULAR VOLUME 96.7 fL (81.0-99.0); MEAN PLATELET VOLUME 10.2 fl (7.4-10.4); MONOCYTES % 13.2 % (2.0-8.0); NEUTROPHILS % 64.5 % (40.0-76.0); PLATELET 147 x1000/uL (130-400)
[2018-12-12 07:08] LABS: CHLORIDE 89 mEq/L (98-107)
[2018-12-12 07:28] LABS: PHOSPHORUS 3.1 mg/dL (2.5-4.9)
[2018-12-12] MEDS: INSULIN LISPRO 100 UNITS/ML SUBCUT SCH ×4 (07:40→20:58)
[2018-12-12 08:00] VITALS: BP 129/56
[2018-12-12] MEDS ORDERED: ENOXAPARIN 40MG/0.4ML SYR SUBCUT SCH (09:00)
[2018-12-12] MEDS: BUDESONIDE 0.5MG/2ML NEB HHN SCH ×2 (09:52→21:40)
[2018-12-12 12:00] VITALS: BP 129/84
[2018-12-12] MEDS: FAMOTIDINE 20MG TABLET PO SCH (15:18)
[2018-12-12 16:00] VITALS: BP 147/69
[2018-12-12] MEDS ORDERED: NA PHOS,M-B/NA PHOS,DI-BA ENEMA 118ML PR NR (18:00)
[2018-12-12] MEDS ORDERED: BISACODYL 10MG SUPP PR NR (18:00)
[2018-12-12] MEDS ORDERED: BISACODYL 10MG SUPP PR PRN (18:00)
[2018-12-12 18:08] LABS: BG BASE EXCESS 10.2 mmol/L (-2.0-2.0); BG CARBOXYHEMOGLOBIN 0.3 % (0.5-1.5); BG DEOXYHEMOGLOBIN 1.4 % (0.0-5.0); BG FRACTION INSPIRED OXYGEN 32; BG HCO3 ACT 38.6 mmol/L (22.0-26.0); BG METHEMOGLOBIN 0.3 % (0.0-1.5); BG OXYGEN SATURATION 98.6 % (92.0-98.5); BG PCO2 73.6 mmHg (35.0-45.0); BG PH 7.338 (7.350-7.450); BG PO2 137.3 mmHg (75.0-100.0); BG SAMPLE SITE RIGHT BRACHIAL; BG VENT MODE NASAL CANNULA
[2018-12-12 20:00] VITALS: BP 105/54
[2018-12-12] MEDS: ACETAMINOPHEN 325MG TABLET PO PRN (22:18)
[2018-12-13] VITALS: BP 111/61
[2018-12-13 04:00] VITALS: BP 138/60
[2018-12-13] MEDS: LEVOTHYROXINE SODIUM 50MCG TABLET PO SCH (06:21)
[2018-12-13] MEDS: BLOOD SUGAR DIAGNOSTIC STRIP TEST SCH ×4 (06:21→21:42)
[2018-12-13] MEDS: INSULIN LISPRO 100 UNITS/ML SUBCUT SCH ×4 (06:21→21:00)
[2018-12-13 07:05] LABS: HEMATOCRIT. 34.4 % (36.0-48.0); HEMOGLOBIN. 11.9 g/dL (12.0-16.0); MEAN CORPUSCULAR HEMOGLOBIN 33.1 pg (28.0-32.0); MEAN PLATELET VOLUME 11.6 fl (7.4-10.4); PLATELET 155 x1000/uL (130-400); RED BLOOD CELL COUNT 3.58 mill/uL (4.2-5.4); RED CELL DISTRIBUTION WIDTH 12.9 % (11.6-14.6)
[2018-12-13 08:00] VITALS: BP 117/55
[2018-12-13] MEDS: IPRATROPIUM/ALBUTEROL 0.5-3(2.5)MG/3ML NEB HHN PRN (08:04)
[2018-12-13] MEDS: BUDESONIDE 0.5MG/2ML NEB HHN SCH ×2 (08:04→20:25)
[2018-12-13] MEDS: FAMOTIDINE 20MG TABLET PO SCH (09:42)
[2018-12-13] MEDS: DOCUSATE SODIUM 250MG CAPSULE PO SCH (09:45)
[2018-12-13] MEDS: ENOXAPARIN 30MG/0.3ML SYR SUBCUT SCH (09:46)
[2018-12-13 10:35] LABS: CHLORIDE 85 mEq/L (98-107)
[2018-12-13 10:49] LABS: PHOSPHORUS 2.6 mg/dL (2.5-4.9)
[2018-12-13 12:00] VITALS: BP 121/76
[2018-12-13] MEDS: SODIUM CHLORIDE 0.9% 1,000 ML IV SCH (12:30)
[2018-12-13] MEDS ORDERED: MAGNESIUM 2 G PREMIX 50 ML IV SCH (13:00)
[2018-12-13 13:17] LABS: PLATELET ESTIMATE NORMAL
[2018-12-13] MEDS ORDERED: NA PHOS,M-B/NA PHOS,DI-BA ENEMA 118ML PR NR (13:30)
[2018-12-13 16:00] VITALS: BP 122/59
[2018-12-13] MEDS ORDERED: LACTULOSE 20G/30ML UDC PO NR (16:30)
[2018-12-13 20:00] VITALS: BP 122/52
[2018-12-14] VITALS: BP 119/52
[2018-12-14 04:00] VITALS: BP 119/56
[2018-12-14] MEDS: INSULIN LISPRO 100 UNITS/ML SUBCUT SCH ×3 (06:57→20:23)
[2018-12-14] MEDS: BLOOD SUGAR DIAGNOSTIC STRIP TEST SCH ×4 (06:57→20:24)
[2018-12-14] MEDS: BUDESONIDE 0.5MG/2ML NEB HHN SCH ×2 (07:00→21:09)
[2018-12-14 08:00] VITALS: BP 122/54
[2018-12-14 08:18] LABS: BASOPHILS % 0.4 % (0.0-2.0); EOSINOPHILS % 5.6 % (0.0-5.0); HEMATOCRIT. 32.7 % (36.0-48.0); HEMOGLOBIN. 11.3 g/dL (12.0-16.0); LYMPHOCYTES % 11.3 % (20.0-50.0); MEAN CORPUSCULAR HEMOGLOBIN 33.5 pg (28.0-32.0); MONOCYTES % 12.5 % (2.0-8.0); NEUTROPHILS % 70.2 % (40.0-76.0); PLATELET 141 x1000/uL (130-400); RED BLOOD CELL COUNT 3.37 mill/uL (4.2-5.4); RED CELL DISTRIBUTION WIDTH 12.8 % (11.6-14.6)
[2018-12-14] MEDS: SODIUM CHLORIDE 0.9% 1,000 ML IV SCH ×2 (08:30→13:56)
[2018-12-14] MEDS: DOCUSATE SODIUM 250MG CAPSULE PO SCH (09:13)
[2018-12-14] MEDS: ENOXAPARIN 30MG/0.3ML SYR SUBCUT SCH (09:13)
[2018-12-14] MEDS: LEVOTHYROXINE SODIUM 50MCG TABLET PO SCH (09:13)
[2018-12-14] MEDS: FAMOTIDINE 20MG TABLET PO SCH (09:13)
[2018-12-14 10:44] LABS: CHLORIDE 88 mEq/L (98-107)
[2018-12-14 12:00] VITALS: BP 128/66
[2018-12-14] MEDS: NITROFURANTOIN 100MG M/M CAPSULE PO SCH ×2 (13:54→20:14)
[2018-12-14] MEDS: DEMECLOCYCLINE HCL 300MG TABLET PO SCH ×2 (13:54→20:14)
[2018-12-14 16:30] VITALS: BP 141/58
[2018-12-14 20:00] VITALS: BP 126/55
[2018-12-14] MEDS: IPRATROPIUM/ALBUTEROL 0.5-3(2.5)MG/3ML NEB HHN PRN (21:09)
[2018-12-15] VITALS (51 sets, daily range): BP systolic 69–135; BP diastolic 27–83
[2018-12-15 00:26] LABS: BG BASE EXCESS 7.4 mmol/L (-2.0-2.0); BG CARBOXYHEMOGLOBIN 0.4 % (0.5-1.5); BG DEOXYHEMOGLOBIN 0.8 % (0.0-5.0); BG FRACTION INSPIRED OXYGEN 100; BG HCO3 ACT 34.9 mmol/L (22.0-26.0); BG METHEMOGLOBIN 0.1 % (0.0-1.5); BG OXYGEN SATURATION 99.2 % (92.0-98.5); BG OXYHEMOGLOBIN 98.7 % (94.0-97.0); BG PCO2 64.6 mmHg (35.0-45.0); BG PH 7.351 (7.350-7.450); BG PO2 251.7 mmHg (75.0-100.0); BG SAMPLE SITE LEFT RADIAL; BG VENT MODE MASK - NRB
[2018-12-15] MEDS ORDERED: DILTIAZEM HCL 125 MG in DEXT 5% WATER 100 ML IV PRN (00:45)
[2018-12-15] MEDS: IPRATROPIUM/ALBUTEROL 0.5-3(2.5)MG/3ML NEB HHN PRN (01:30)
[2018-12-15] MEDS: IPRATROPIUM BROMIDE (0.02%) 0.5MG/2.5ML NEB HHN SCH ×4 (01:30→20:37)
[2018-12-15] MEDS ORDERED: DILTIAZEM HCL 5MG/ML 5ML VIAL IV NR (02:00)
[2018-12-15] MEDS: SODIUM CHLORIDE 0.9% 1,000 ML IV SCH (04:30)
[2018-12-15 05:36] LABS: CHLORIDE 92 mEq/L (98-107)
[2018-12-15 05:40] LABS: HEMATOCRIT. 30.9 % (36.0-48.0); HEMOGLOBIN. 10.4 g/dL (12.0-16.0); MEAN CORPUSCULAR VOLUME 97.9 fL (81.0-99.0); MEAN PLATELET VOLUME 11.3 fl (7.4-10.4); PLATELET 136 x1000/uL (130-400); RED BLOOD CELL COUNT 3.16 mill/uL (4.2-5.4); RED CELL DISTRIBUTION WIDTH 12.9 % (11.6-14.6)
[2018-12-15 05:43] LABS: PHOSPHORUS 2.9 mg/dL (2.5-4.9)
[2018-12-15] MEDS: LEVOTHYROXINE SODIUM 50MCG TABLET PO SCH (08:12)
[2018-12-15] MEDS: NITROFURANTOIN 100MG M/M CAPSULE PO SCH ×2 (08:12→22:01)
[2018-12-15] MEDS: DOCUSATE SODIUM 250MG CAPSULE PO SCH (08:12)
[2018-12-15] MEDS: ENOXAPARIN 30MG/0.3ML SYR SUBCUT SCH (08:12)
[2018-12-15] MEDS: FAMOTIDINE 20MG TABLET PO SCH (08:12)
[2018-12-15] MEDS: BLOOD SUGAR DIAGNOSTIC STRIP TEST SCH ×3 (08:13→21:00)
[2018-12-15] MEDS: INSULIN LISPRO 100 UNITS/ML SUBCUT SCH ×3 (08:20→22:00)
[2018-12-15] MEDS: DEMECLOCYCLINE HCL 300MG TABLET PO SCH ×2 (09:00→13:10)
[2018-12-15 09:57] LABS: PLATELET ESTIMATE NORMAL
[2018-12-15] MEDS ORDERED: MAGNESIUM 4 G PREMIX 100 ML IV SCH (10:00)
[2018-12-15] MEDS ORDERED: POTASSIUM CHLORIDE INJ 40 MEQ in DEXT 5% WATER 250 ML IV SCH (10:00)
[2018-12-15] MEDS: ALPRAZOLAM 0.25 MG TABLET PO SCH ×2 (10:53→16:17)
[2018-12-15] MEDS ORDERED: DILTIAZEM HCL 30MG TABLET PO SCH (12:00)
[2018-12-15] MEDS: DILTIAZEM HCL 30MG TABLET PO SCH ×2 (14:00→22:02)
[2018-12-16] VITALS (13 sets, daily range): BP systolic 104–144; BP diastolic 44–98
[2018-12-16] MEDS: IPRATROPIUM BROMIDE (0.02%) 0.5MG/2.5ML NEB HHN SCH ×4 (00:47→21:28)
[2018-12-16] MEDS: DILTIAZEM HCL 30MG TABLET PO SCH ×3 (05:44→21:02)
[2018-12-16] MEDS: LEVOTHYROXINE SODIUM 50MCG TABLET PO SCH (05:44)
[2018-12-16] MEDS: BLOOD SUGAR DIAGNOSTIC STRIP TEST SCH ×4 (05:44→21:02)
[2018-12-16 07:03] LABS: HEMATOCRIT. 31.7 % (36.0-48.0); HEMOGLOBIN. 10.7 g/dL (12.0-16.0); MEAN PLATELET VOLUME 11.1 fl (7.4-10.4); PLATELET 150 x1000/uL (130-400); RED BLOOD CELL COUNT 3.23 mill/uL (4.2-5.4); RED CELL DISTRIBUTION WIDTH 13.2 % (11.6-14.6)
[2018-12-16] MEDS: ENOXAPARIN 30MG/0.3ML SYR SUBCUT SCH (09:23)
[2018-12-16] MEDS: NITROFURANTOIN 100MG M/M CAPSULE PO SCH ×2 (09:23→21:01)
[2018-12-16] MEDS: ALPRAZOLAM 0.25 MG TABLET PO SCH ×2 (09:23→18:29)
[2018-12-16] MEDS: DEMECLOCYCLINE HCL 300MG TABLET PO SCH ×2 (09:23→21:01)
[2018-12-16] MEDS: FAMOTIDINE 20MG TABLET PO SCH (09:23)
[2018-12-16] MEDS: DOCUSATE SODIUM 250MG CAPSULE PO SCH (09:23)
[2018-12-16] MEDS: INSULIN LISPRO 100 UNITS/ML SUBCUT SCH ×4 (09:25→21:32)
[2018-12-16 09:56] LABS: PLATELET ESTIMATE NORMAL
[2018-12-16 09:58] LABS: CHLORIDE 91 mEq/L (98-107)
[2018-12-16 10:13] LABS: CREATINE KINASE 33 IU/L (26-192)
[2018-12-16 10:15] LABS: PHOSPHORUS 1.8 mg/dL (2.5-4.9)
[2018-12-16 10:16] LABS: CREATINE KINASE MB FRACTION 1.9 ng/mL (0.5-3.6)
[2018-12-16] MEDS ORDERED: SODIUM PHOS,M-BASIC-D-BASIC 20 MM in DEXT 5% WATER 250 ML IV SCH (15:00)
[2018-12-17] VITALS (12 sets, daily range): BP systolic 122–150; BP diastolic 59–74
[2018-12-17 05:52] LABS: HEMATOCRIT. 34.1 % (36.0-48.0); HEMOGLOBIN. 11.3 g/dL (12.0-16.0); MEAN CORPUSCULAR HEMOGLOBIN 32.7 pg (28.0-32.0); MEAN CORPUSCULAR VOLUME 98.4 fL (81.0-99.0); MEAN PLATELET VOLUME 11.3 fl (7.4-10.4); PLATELET 161 x1000/uL (130-400); RED BLOOD CELL COUNT 3.47 mill/uL (4.2-5.4); RED CELL DISTRIBUTION WIDTH 12.9 % (11.6-14.6)
[2018-12-17] MEDS: DILTIAZEM HCL 30MG TABLET PO SCH (05:52)
[2018-12-17 05:54] LABS: CHLORIDE 86 mEq/L (98-107)
[2018-12-17 06:03] LABS: PHOSPHORUS 2.5 mg/dL (2.5-4.9)
[2018-12-17] MEDS: BLOOD SUGAR DIAGNOSTIC STRIP TEST SCH ×4 (06:50→21:23)
[2018-12-17] MEDS ORDERED: POTASSIUM CHLORIDE 20MEQ/PACKET PO SCH (08:00)
[2018-12-17] MEDS: LEVOTHYROXINE SODIUM 50MCG TABLET PO SCH (08:14)
[2018-12-17] MEDS: NITROFURANTOIN 100MG M/M CAPSULE PO SCH ×2 (08:14→21:26)
[2018-12-17] MEDS: FAMOTIDINE 20MG TABLET PO SCH (08:14)
[2018-12-17] MEDS: ALPRAZOLAM 0.25 MG TABLET PO SCH ×2 (08:14→16:14)
[2018-12-17] MEDS: ENOXAPARIN 30MG/0.3ML SYR SUBCUT SCH (08:14)
[2018-12-17] MEDS: DEMECLOCYCLINE HCL 300MG TABLET PO SCH ×2 (08:15→21:27)
[2018-12-17] MEDS: DOCUSATE SODIUM 250MG CAPSULE PO SCH (08:15)
[2018-12-17] MEDS: INSULIN LISPRO 100 UNITS/ML SUBCUT SCH ×4 (08:17→21:26)
[2018-12-17] MEDS: IPRATROPIUM BROMIDE (0.02%) 0.5MG/2.5ML NEB HHN SCH ×3 (09:19→20:26)
[2018-12-17] MEDS ORDERED: POTASSIUM CHLORIDE 20MEQ TABLET SR PO NR (11:00)
[2018-12-17] MEDS ORDERED: MAGNESIUM 2 G PREMIX 50 ML IV NR (11:30)
[2018-12-17 12:47] LABS: PLATELET ESTIMATE NORMAL
[2018-12-17] MEDS: DILTIAZEM HCL 60MG TABLET PO SCH ×2 (13:47→21:27)
[2018-12-18] VITALS (14 sets, daily range): BP systolic 123–154; BP diastolic 56–84
[2018-12-18] MEDS: IPRATROPIUM BROMIDE (0.02%) 0.5MG/2.5ML NEB HHN SCH ×4 (01:35→20:33)
[2018-12-18 06:36] LABS: HEMATOCRIT. 34.2 % (36.0-48.0); HEMOGLOBIN. 11.4 g/dL (12.0-16.0); MEAN CORPUSCULAR HEMOGLOBIN 32.6 pg (28.0-32.0); MEAN PLATELET VOLUME 10.6 fl (7.4-10.4); PLATELET 178 x1000/uL (130-400); RED BLOOD CELL COUNT 3.49 mill/uL (4.2-5.4); RED CELL DISTRIBUTION WIDTH 12.6 % (11.6-14.6)
[2018-12-18] MEDS: BLOOD SUGAR DIAGNOSTIC STRIP TEST SCH ×4 (06:39→21:00)
[2018-12-18] MEDS: DILTIAZEM HCL 60MG TABLET PO SCH ×3 (06:39→22:30)
[2018-12-18] MEDS: LEVOTHYROXINE SODIUM 50MCG TABLET PO SCH (06:39)
[2018-12-18 07:30] LABS: CHLORIDE 87 mEq/L (98-107)
[2018-12-18 07:37] LABS: PHOSPHORUS 2.4 mg/dL (2.5-4.9)
[2018-12-18] MEDS: DOCUSATE SODIUM 250MG CAPSULE PO SCH (08:35)
[2018-12-18] MEDS: DEMECLOCYCLINE HCL 300MG TABLET PO SCH ×2 (08:37→22:30)
[2018-12-18] MEDS: ALPRAZOLAM 0.25 MG TABLET PO SCH ×2 (08:38→17:00)
[2018-12-18] MEDS: NITROFURANTOIN 100MG M/M CAPSULE PO SCH ×2 (08:38→22:30)
[2018-12-18] MEDS: FAMOTIDINE 20MG TABLET PO SCH (08:38)
[2018-12-18] MEDS: ENOXAPARIN 30MG/0.3ML SYR SUBCUT SCH (08:39)
[2018-12-18] MEDS: INSULIN LISPRO 100 UNITS/ML SUBCUT SCH ×4 (08:45→22:58)
[2018-12-18 11:02] LABS: PLATELET ESTIMATE NORMAL
[2018-12-18] MEDS ORDERED: POTASSIUM CHLORIDE 20MEQ TABLET SR PO NR (18:45)
[2018-12-18] MEDS ORDERED: MAGNESIUM 2 G PREMIX 50 ML IV NR (19:30)
[2018-12-18] MEDS ORDERED: AMLODIPINE 5MG TABLET PO SCH (20:15)
[2018-12-18] MEDS ORDERED: POTASSIUM PHOS,M-BASIC-D-BASIC 15 MMOL in SODIUM CHLORIDE 0.9% 245 ML IV NR (21:00)
[2018-12-19] VITALS (16 sets, daily range): BP systolic 111–142; BP diastolic 51–80
[2018-12-19] MEDS: IPRATROPIUM BROMIDE (0.02%) 0.5MG/2.5ML NEB HHN SCH ×3 (01:53→19:43)
[2018-12-19] MEDS: DILTIAZEM HCL 60MG TABLET PO SCH ×3 (06:43→22:04)
[2018-12-19] MEDS: BLOOD SUGAR DIAGNOSTIC STRIP TEST SCH ×4 (06:44→22:03)
[2018-12-19] MEDS: LEVOTHYROXINE SODIUM 50MCG TABLET PO SCH (06:44)
[2018-12-19 07:18] LABS: HEMATOCRIT 34.4 % (36.0-48.0); HEMOGLOBIN 11.9 g/dL (12.0-16.0); MEAN CORPUSCULAR HEMOGLOBIN 33.5 pg (28.0-32.0); MEAN CORPUSCULAR VOLUME 96.8 fL (81.0-99.0); PLATELET 201 x1000/uL (130-400); RED BLOOD CELL COUNT 3.55 mill/uL (4.2-5.4); RED CELL DISTRIBUTION WIDTH 12.6 % (11.6-14.6)
[2018-12-19] MEDS: INSULIN LISPRO 100 UNITS/ML SUBCUT SCH ×4 (07:20→22:29)
[2018-12-19 07:36] LABS: CHLORIDE 81 mEq/L (98-107)
[2018-12-19 07:45] LABS: PHOSPHORUS 2.8 mg/dL (2.5-4.9)
[2018-12-19] MEDS: NITROFURANTOIN 100MG M/M CAPSULE PO SCH (08:43)
[2018-12-19] MEDS: DEMECLOCYCLINE HCL 300MG TABLET PO SCH ×2 (08:43→22:01)
[2018-12-19] MEDS: ALPRAZOLAM 0.25 MG TABLET PO SCH (08:44)
[2018-12-19] MEDS: DOCUSATE SODIUM 250MG CAPSULE PO SCH (08:44)
[2018-12-19] MEDS: FAMOTIDINE 20MG TABLET PO SCH (08:44)
[2018-12-19] MEDS: ENOXAPARIN 30MG/0.3ML SYR SUBCUT SCH (08:44)
[2018-12-19] MEDS ORDERED: POTASSIUM CHLORIDE 20MEQ TABLET SR PO NR (11:00)
[2018-12-19] MEDS ORDERED: MAGNESIUM 1 G PREMIX 100 ML IV NR (13:00)
[2018-12-19] MEDS: IPRATROPIUM/ALBUTEROL 0.5-3(2.5)MG/3ML NEB HHN PRN (13:03)
[2018-12-19] MEDS ORDERED: LORAZEPAM 2MG/ML CPJ IV PRN (14:15)
[2018-12-19] MEDS ORDERED: MORPHINE SULFATE 2 MG/ML CPJ (NOT FOR IM USE) IV PRN (14:15)
[2018-12-19] MEDS: SODIUM CHLORIDE 1000MG TABLET PO SCH (17:01)
[2018-12-19] MEDS: MEGESTROL ACETATE 20MG TABLET PO SCH (19:32)
[2018-12-20] VITALS (8 sets, daily range): BP systolic 107–140; BP diastolic 48–91
[2018-12-20] MEDS: IPRATROPIUM BROMIDE (0.02%) 0.5MG/2.5ML NEB HHN SCH ×3 (01:23→12:14)
[2018-12-20] MEDS: MEGESTROL ACETATE 20MG TABLET PO SCH ×4 (02:07→17:53)
[2018-12-20] MEDS: BLOOD SUGAR DIAGNOSTIC STRIP TEST SCH ×4 (06:20→21:58)
[2018-12-20] MEDS: LEVOTHYROXINE SODIUM 50MCG TABLET PO SCH (06:20)
[2018-12-20] MEDS: DILTIAZEM HCL 60MG TABLET PO SCH ×3 (06:21→21:20)
[2018-12-20 06:42] LABS: HEMATOCRIT. 35.1 % (36.0-48.0); MEAN CORPUSCULAR HEMOGLOBIN 33.2 pg (28.0-32.0); MEAN CORPUSCULAR VOLUME 97.1 fL (81.0-99.0); MEAN PLATELET VOLUME 11.2 fl (7.4-10.4); PLATELET 209 x1000/uL (130-400); RED BLOOD CELL COUNT 3.62 mill/uL (4.2-5.4); RED CELL DISTRIBUTION WIDTH 12.9 % (11.6-14.6)
[2018-12-20 06:43] LABS: CHLORIDE 85 mEq/L (98-107)
[2018-12-20 07:04] LABS: PHOSPHORUS 3.3 mg/dL (2.5-4.9)
[2018-12-20] MEDS: INSULIN LISPRO 100 UNITS/ML SUBCUT SCH ×4 (07:54→21:57)
[2018-12-20] MEDS: IPRATROPIUM/ALBUTEROL 0.5-3(2.5)MG/3ML NEB HHN PRN ×2 (08:32→16:53)
[2018-12-20] MEDS ORDERED: POTASSIUM CHLORIDE 20MEQ TABLET SR PO NR (09:30)
[2018-12-20] MEDS: ENOXAPARIN 30MG/0.3ML SYR SUBCUT SCH (09:52)
[2018-12-20] MEDS: DEMECLOCYCLINE HCL 300MG TABLET PO SCH ×2 (09:53→21:20)
[2018-12-20] MEDS: FAMOTIDINE 20MG TABLET PO SCH (09:53)
[2018-12-20] MEDS: DOCUSATE SODIUM 250MG CAPSULE PO SCH (09:55)
[2018-12-20] MEDS ORDERED: MAGNESIUM 2 G PREMIX 50 ML IV NR (10:30)
[2018-12-20 11:11] LABS: PLATELET ESTIMATE NORMAL
[2018-12-20] MEDS: SODIUM CHLORIDE 1000MG TABLET PO SCH ×2 (11:27→17:53)
[2018-12-20] MEDS ORDERED: VISCOUS LIDOCAINE 2% 15 ML UDC MM PRN (15:30)
[2018-12-20] MEDS: ALPRAZOLAM 0.25 MG TABLET PO SCH ×2 (15:55→21:19)
[2018-12-20] MEDS: VITAMINS A AND D OINT TUBE TOP SCH ×2 (16:33→21:58)
[2018-12-20] MEDS: NYSTATIN 100,000 UNITS/ML 5ML UDC SSW SCH (19:04)
[2018-12-20] MEDS: GUAIFENESIN 600MG ER TABLET PO SCH (21:19)
[2018-12-20] MEDS: ALBUTEROL 6.7GM HFA INHALER ORI SCH (21:21)
[2018-12-21] VITALS: BP 122/57
[2018-12-21] MEDS: MEGESTROL ACETATE 20MG TABLET PO SCH ×4 (00:14→18:53)
[2018-12-21] MEDS: NYSTATIN 100,000 UNITS/ML 5ML UDC SSW SCH ×4 (00:14→18:53)
[2018-12-21 04:00] VITALS: BP 136/59
[2018-12-21] MEDS: ALBUTEROL 6.7GM HFA INHALER ORI SCH ×4 (05:11→21:53)
[2018-12-21] MEDS: VITAMINS A AND D OINT TUBE TOP SCH ×3 (05:11→16:30)
[2018-12-21] MEDS: ALPRAZOLAM 0.25 MG TABLET PO SCH ×3 (05:14→21:50)
[2018-12-21] MEDS: DILTIAZEM HCL 60MG TABLET PO SCH ×3 (05:14→21:51)
[2018-12-21] MEDS: LEVOTHYROXINE SODIUM 50MCG TABLET PO SCH (06:57)
[2018-12-21] MEDS: BLOOD SUGAR DIAGNOSTIC STRIP TEST SCH ×4 (07:08→21:00)
[2018-12-21 08:00] VITALS: BP 140/58
[2018-12-21] MEDS: GUAIFENESIN 600MG ER TABLET PO SCH ×2 (08:43→21:52)
[2018-12-21] MEDS: DOCUSATE SODIUM 250MG CAPSULE PO SCH (08:44)
[2018-12-21] MEDS: DEMECLOCYCLINE HCL 300MG TABLET PO SCH (08:44)
[2018-12-21] MEDS: FAMOTIDINE 20MG TABLET PO SCH (08:44)
[2018-12-21] MEDS: SODIUM CHLORIDE 1000MG TABLET PO SCH ×2 (08:44→18:53)
[2018-12-21] MEDS: ENOXAPARIN 30MG/0.3ML SYR SUBCUT SCH (08:47)
[2018-12-21] MEDS: INSULIN LISPRO 100 UNITS/ML SUBCUT SCH ×4 (08:56→22:43)
[2018-12-21 12:00] VITALS: BP 115/45
[2018-12-21 16:00] VITALS: BP 126/52
[2018-12-21 20:00] VITALS: BP 120/61
[2018-12-22] VITALS (7 sets, daily range): BP systolic 118–130; BP diastolic 44–63
[2018-12-22] MEDS: NYSTATIN 100,000 UNITS/ML 5ML UDC SSW SCH ×5 (00:22→23:19)
[2018-12-22] MEDS: MEGESTROL ACETATE 20MG TABLET PO SCH ×5 (00:22→23:19)
[2018-12-22] MEDS: VITAMINS A AND D OINT TUBE TOP SCH ×5 (00:26→21:35)
[2018-12-22] MEDS: ALBUTEROL 6.7GM HFA INHALER ORI SCH ×2 (06:23→21:28)
[2018-12-22] MEDS: ALPRAZOLAM 0.25 MG TABLET PO SCH ×3 (06:23→21:28)
[2018-12-22] MEDS: DILTIAZEM HCL 60MG TABLET PO SCH ×3 (06:25→21:28)
[2018-12-22] MEDS: LEVOTHYROXINE SODIUM 50MCG TABLET PO SCH (06:32)
[2018-12-22] MEDS: BLOOD SUGAR DIAGNOSTIC STRIP TEST SCH ×4 (07:41→20:15)
[2018-12-22] MEDS: DOCUSATE SODIUM 250MG CAPSULE PO SCH (08:54)
[2018-12-22] MEDS: SODIUM CHLORIDE 1000MG TABLET PO SCH ×2 (08:54→16:59)
[2018-12-22] MEDS: FAMOTIDINE 20MG TABLET PO SCH (08:54)
[2018-12-22] MEDS: GUAIFENESIN 600MG ER TABLET PO SCH ×2 (08:54→20:06)
[2018-12-22] MEDS: ENOXAPARIN 30MG/0.3ML SYR SUBCUT SCH (08:55)
[2018-12-22] MEDS: INSULIN LISPRO 100 UNITS/ML SUBCUT SCH ×4 (08:56→20:12)
[2018-12-22] MEDS ORDERED: SORBITOL 70% SOLN 30ML PO NR (16:30)
[2018-12-22] MEDS ORDERED: BISACODYL 10MG SUPP PR NR (16:30)
[2018-12-22] MEDS: SENNOSIDES/DOCUSATE SOD 8.6/50MG TABLET PO SCH (22:00)
[2018-12-23] VITALS: BP 100/59
[2018-12-23 04:00] VITALS: BP 119/53
[2018-12-23] MEDS: ALBUTEROL 6.7GM HFA INHALER ORI SCH ×4 (04:09→22:55)
[2018-12-23] MEDS: VITAMINS A AND D OINT TUBE TOP SCH ×4 (04:10→22:46)
[2018-12-23] MEDS: NYSTATIN 100,000 UNITS/ML 5ML UDC SSW SCH ×4 (06:06→23:10)
[2018-12-23] MEDS: ALPRAZOLAM 0.25 MG TABLET PO SCH ×3 (06:06→21:44)
[2018-12-23] MEDS: DILTIAZEM HCL 60MG TABLET PO SCH ×3 (06:06→21:45)
[2018-12-23] MEDS: MEGESTROL ACETATE 20MG TABLET PO SCH ×4 (06:06→23:10)
[2018-12-23] MEDS: LEVOTHYROXINE SODIUM 50MCG TABLET PO SCH (06:20)
[2018-12-23] MEDS: BLOOD SUGAR DIAGNOSTIC STRIP TEST SCH ×4 (06:20→21:23)
[2018-12-23 08:00] VITALS: BP 109/39
[2018-12-23] MEDS: FAMOTIDINE 20MG TABLET PO SCH (09:07)
[2018-12-23] MEDS: GUAIFENESIN 600MG ER TABLET PO SCH ×2 (09:07→22:40)
[2018-12-23] MEDS: SODIUM CHLORIDE 1000MG TABLET PO SCH ×2 (09:07→16:24)
[2018-12-23] MEDS: DOCUSATE SODIUM 250MG CAPSULE PO SCH (09:08)
[2018-12-23] MEDS: ENOXAPARIN 30MG/0.3ML SYR SUBCUT SCH (09:08)
[2018-12-23] MEDS: INSULIN LISPRO 100 UNITS/ML SUBCUT SCH ×4 (09:09→21:42)
[2018-12-23 12:00] VITALS: BP 119/44
[2018-12-23 16:00] VITALS: BP 116/39
[2018-12-23] MEDS ORDERED: AMLODIPINE 10MG TABLET PO SCH (19:00)
[2018-12-23 20:00] VITALS: BP 120/51
[2018-12-23] MEDS: SENNOSIDES/DOCUSATE SOD 8.6/50MG TABLET PO SCH (21:45)
[2018-12-24] VITALS: BP 123/56
[2018-12-24] MEDS: IPRATROPIUM/ALBUTEROL 0.5-3(2.5)MG/3ML NEB HHN PRN ×2 (00:32→23:13)
[2018-12-24] MEDS: ACETAMINOPHEN 325MG TABLET PO PRN (02:20)
[2018-12-24] MEDS: ALBUTEROL 6.7GM HFA INHALER ORI SCH ×4 (03:16→21:34)
[2018-12-24] MEDS: VITAMINS A AND D OINT TUBE TOP SCH ×4 (03:44→21:34)
[2018-12-24 04:00] VITALS: BP 136/65
[2018-12-24] MEDS: ALPRAZOLAM 0.25 MG TABLET PO SCH ×3 (05:31→21:32)
[2018-12-24] MEDS: NYSTATIN 100,000 UNITS/ML 5ML UDC SSW SCH ×4 (05:31→23:30)
[2018-12-24] MEDS: DILTIAZEM HCL 60MG TABLET PO SCH ×3 (05:31→21:33)
[2018-12-24] MEDS: MEGESTROL ACETATE 20MG TABLET PO SCH ×4 (05:32→23:30)
[2018-12-24] MEDS: BLOOD SUGAR DIAGNOSTIC STRIP TEST SCH ×4 (07:51→21:16)
[2018-12-24 08:00] VITALS: BP 133/55
[2018-12-24] MEDS: GUAIFENESIN 600MG ER TABLET PO SCH ×2 (08:50→21:00)
[2018-12-24] MEDS: SODIUM CHLORIDE 1000MG TABLET PO SCH ×2 (08:50→17:25)
[2018-12-24] MEDS: DOCUSATE SODIUM 250MG CAPSULE PO SCH (08:50)
[2018-12-24] MEDS: LEVOTHYROXINE SODIUM 50MCG TABLET PO SCH (08:50)
[2018-12-24] MEDS: FAMOTIDINE 20MG TABLET PO SCH (08:50)
[2018-12-24] MEDS: ENOXAPARIN 30MG/0.3ML SYR SUBCUT SCH (09:33)
[2018-12-24] MEDS: INSULIN LISPRO 100 UNITS/ML SUBCUT SCH ×4 (09:50→21:35)
[2018-12-24 12:00] VITALS: BP 143/63
[2018-12-24 16:00] VITALS: BP 142/57
[2018-12-24] MEDS: MORPHINE SULFATE 2 MG/ML CPJ (NOT FOR IM USE) IV PRN (17:40)
[2018-12-24 20:00] VITALS: BP 142/57
[2018-12-24] MEDS: SENNOSIDES/DOCUSATE SOD 8.6/50MG TABLET PO SCH (21:33)
[2018-12-24] MEDS: GUAIFENESIN-DM 200MG-20MG/10ML UDC PO SCH (22:22)
[2018-12-25] VITALS: BP 102/41
[2018-12-25] MEDS: VITAMINS A AND D OINT TUBE TOP SCH ×4 (03:34→22:23)
[2018-12-25] MEDS: ALBUTEROL 6.7GM HFA INHALER ORI SCH ×4 (03:34→22:22)
[2018-12-25 04:00] VITALS: BP 108/41
[2018-12-25] MEDS: IPRATROPIUM/ALBUTEROL 0.5-3(2.5)MG/3ML NEB HHN PRN ×2 (05:04→16:28)
[2018-12-25] MEDS: ALPRAZOLAM 0.25 MG TABLET PO SCH (06:00)
[2018-12-25] MEDS: MEGESTROL ACETATE 20MG TABLET PO SCH (06:00)
[2018-12-25] MEDS: NYSTATIN 100,000 UNITS/ML 5ML UDC SSW SCH (06:00)
[2018-12-25] MEDS: DILTIAZEM HCL 60MG TABLET PO SCH (06:00)
[2018-12-25] MEDS: LEVOTHYROXINE SODIUM 50MCG TABLET PO SCH (06:52)
[2018-12-25] MEDS: BLOOD SUGAR DIAGNOSTIC STRIP TEST SCH ×2 (06:52→13:16)
[2018-12-25 08:00] VITALS: BP 107/33
[2018-12-25] MEDS: SODIUM CHLORIDE 1000MG TABLET PO SCH (09:00)
[2018-12-25] MEDS: GUAIFENESIN-DM 200MG-20MG/10ML UDC PO SCH ×2 (09:00→20:47)
[2018-12-25] MEDS: FAMOTIDINE 20MG TABLET PO SCH (09:00)
[2018-12-25] MEDS: DOCUSATE SODIUM 250MG CAPSULE PO SCH (09:00)
[2018-12-25] MEDS: ENOXAPARIN 30MG/0.3ML SYR SUBCUT SCH (09:29)
[2018-12-25] MEDS: INSULIN LISPRO 100 UNITS/ML SUBCUT SCH (10:58)
[2018-12-25 12:00] VITALS: BP 117/49
[2018-12-25] MEDS: MORPHINE SULFATE 2 MG/ML CPJ (NOT FOR IM USE) IV PRN ×2 (15:36→20:25)
[2018-12-25 16:00] VITALS: BP 129/43
[2018-12-25 20:00] VITALS: BP 112/46
[2018-12-25] MEDS: LORAZEPAM 2MG/ML CPJ IV PRN (23:50)
[2018-12-26] VITALS: BP 109/37
[2018-12-26 04:00] VITALS: BP 131/56
[2018-12-26] MEDS: ALBUTEROL 6.7GM HFA INHALER ORI SCH (04:00)
[2018-12-26] MEDS: VITAMINS A AND D OINT TUBE TOP SCH ×3 (04:18→14:06)
[2018-12-26] MEDS: LORAZEPAM 2MG/ML CPJ IV PRN ×3 (04:35→17:01)
[2018-12-26] MEDS: MORPHINE SULFATE 2 MG/ML CPJ (NOT FOR IM USE) IV PRN ×4 (06:51→18:12)
[2018-12-26 08:00] VITALS: BP 122/57
[2018-12-26] MEDS: GUAIFENESIN-DM 200MG-20MG/10ML UDC PO SCH (08:44)
[2018-12-26 12:00] VITALS: BP 119/44
[2018-12-26 16:44] VITALS: BP 119/44
== END 2018-12-26 18:30 | disposition expired | DRG 720 ==
LOC: ER 01:47 → 8WST 05:24 → ENRESERV 20:55 → CVICU 12-15 01:22 → 3WST 12-15 18:45 → 6EST 12-19 23:07
PROVIDERS: ADMIT Internal Medicine Critical Care Medicine; ATTEND Internal Medicine Critical Care Medicine
DX: A41.81 Sepsis due to Enterococcus (principal); J96.22 Acute and chronic respiratory failure with hypercapnia; E43 Unspecified severe protein-calorie malnutrition; E87.3 Alkalosis; E22.2 Syndrome of inappropriate secretion of antidiuretic hormone; I27.20 Pulmonary hypertension, unspecified; E87.8 Other disorders of electrolyte and fluid balance, not elsewhere classified; J84.112 Idiopathic pulmonary fibrosis; E11.36 Type 2 diabetes mellitus with diabetic cataract; E83.42 Hypomagnesemia; R13.10 Dysphagia, unspecified; R07.9 Chest pain, unspecified; E03.9 Hypothyroidism, unspecified; J44.9 Chronic obstructive pulmonary disease, unspecified; K21.9 Gastro-esophageal reflux disease without esophagitis; Z96.642 Presence of left artificial hip joint; F41.9 Anxiety disorder, unspecified; B95.2 Enterococcus as the cause of diseases classified elsewhere; B96.20 Unspecified Escherichia coli [E. coli] as the cause of diseases classified elsewhere; I47.1 Supraventricular tachycardia; N39.0 Urinary tract infection, site not specified; K59.00 Constipation, unspecified; I10 Essential (primary) hypertension; E87.6 Hypokalemia; I48.0 Paroxysmal atrial fibrillation; I49.3 Ventricular premature depolarization; Z66 Do not resuscitate; Z99.81 Dependence on supplemental oxygen; Z90.81 Acquired absence of spleen; Z83.3 Family history of diabetes mellitus; Z88.1 Allergy status to other antibiotic agents; Z88.8 Allergy status to other drugs, medicaments and biological substances; Z90.49 Acquired absence of other specified parts of digestive tract; Z79.899 Other long term (current) drug therapy; Z88.0 Allergy status to penicillin; Z68.21 Body mass index [BMI] 21.0-21.9, adult
CPT/HCPCS: 36415; 36600; 71045; 74018; 80048; 81003; 82375; 82533; 82550; 82553; 82805; 82962; 83605; 83735; 83880; 83930; 83935; 84100; 84145; 84443; 84484; 85027; 87077; 87186; 92610; 93005; 93306; 93970; 94640; 96374; 96376; 97162; 97166; 97530; 97535; 99285; A6261; J1650; J1815; J2060; J2270; J2405; J3475; J3480; J3490; J7030; J7050; J7060; J7611; J7620; J7626